=== PATIENT | female | born 1940 | race Caucasian/White ===

== ENCOUNTER → 2018-02-27 | Outpatient (CLI) | payer MEDICARE ==
--- NOTE | 2018-02-27 12:01 | XR ---
EXAMINATION TYPE: XR chest 2V DATE OF EXAM: 02/27/2018 COMPARISON: Chest x-ray 09/07/2012, CT chest 02/23/2013 HISTORY: Cough TECHNIQUE: Frontal and lateral views of the chest are obtained. FINDINGS: There is no focal air space opacity, pleural effusion, or pneumothorax seen. Nodularity in the right hilum is indeterminate. The cardiac silhouette size is within normal limits. Retrocardiac density with central lucency compatible with hiatal hernia. Patient is rotated. Postop change noted t o the left proximal humerus. The osseous structures are intact. IMPRESSION: Right middle lobe lung nodule not well seen from prior exam, consider chest CT.
== END | disposition home or self-care (01) ==
LOC: RADXRMAIN 10:34
PROVIDERS: ATTEND Family Medicine
DX: R05 Cough (principal)
CPT/HCPCS: 71046

== ENCOUNTER → 2018-03-06 | Outpatient (CLI) | payer MEDICARE ==
--- NOTE | 2018-03-06 09:09 | CT ---
EXAMINATION TYPE: CT chest w con DATE OF EXAM: 03/06/2018 COMPARISON: 02/23/2013 HISTORY: Solitary pulmonary nodule CT DLP: 405.2 mGycm Automated exposure control for dose reduction was used. CONTRAST: CT scan of the chest is performed with IV Contrast, patient injected with 100 mL of Isovue 300. FINDINGS: LUNGS: There is a 0.5 cm rounded density adjacent to a vessel in the anterior right middle lobe axial image 24. Finding is stable. Could be considered. Tiny peripheral nodules near the major fissure on the right at the level of the infrahilar region stable. No consolidation, pleural effusion or pneumothorax. MEDIASTINUM: There is a trace amount pericardial fluid. The heart is enlarged. Aortic root measures a pproximately 4 cm compatible with mild aneurysmal dilation stable from previous. Ectasia of the brach iocephalic artery noted appears stable. OTHER: Degenerative change of the spine noted with curvature. Hepatic granuloma noted. Postsurgical change left shoulder. Large hiatal hernia noted. Soft tissue calcification seen in the anterior right breast tissue IMPRESSION: 1. Stable 5 mm right middle lobe pulmonary nodule unchanged from 2013 and therefore likely benign. 2. Large hiatal hernia. 3. 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 #4 cardiomegaly and tiny pericardi al effusion.
== END | disposition home or self-care (01) ==
LOC: RADCTMAIN 07:26
PROVIDERS: ATTEND Family Medicine
DX: R91.1 Solitary pulmonary nodule (principal); I51.7 Cardiomegaly; I71.2 Thoracic aortic aneurysm, without rupture; I31.3 Pericardial effusion (noninflammatory); K44.9 Diaphragmatic hernia without obstruction or gangrene
CPT/HCPCS: 82565; 84520; 71260; 36415; Q9967

== ENCOUNTER → 2020-08-05 | Outpatient (CLI) | payer MEDICARE | END | disposition home or self-care (01) | LOC: LABWHC1 10:19 | PROVIDERS: ATTEND Emergency Medicine | DX: Z20.828 Contact with and (suspected) exposure to other viral communicable diseases (principal) | CPT/HCPCS: U0003; C9803 ==

== ENCOUNTER 2020-09-01 06:38 | Inpatient (IN) | payer MEDICARE ==
[2020-09-01] MEDS ORDERED: SODIUM CHLORIDE 0.9% 500 ML 500 ML IV STA (06:47)
[2020-09-01] MEDS ORDERED: MECLIZINE 12.5 MG TAB PO STA (06:47)
[2020-09-01] MEDS ORDERED: METOCLOPRAMIDE 5 MG/ML 2 ML VIAL IVP STA (06:49)
[2020-09-01 07:01] LABS: Basophils # (A) 0.1 k/uL (0-0.2); Basophils % (A) 1 %; Eosinophils # (A) 0.2 k/uL (0-0.7); Eosinophils % (A) 3 %; HCT 43.1 % (34.0-46.0); Lymphocytes # (A) 2.1 k/uL (1.0-4.8); Lymphocytes % (A) 31 %; MCHC 32.4 g/dL (31.0-37.0); MCV 98.6 fL (80.0-100.0); Mean Platelet Volume 6.8; Monocytes # (A) 0.4 k/uL (0-1.0); Monocytes % (A) 5 %; Neutrophils # (A) 3.8 k/uL (1.3-7.7); Neutrophils % (A) 57 %; Platelet Count 351 k/uL (150-450); RBC 4.37 m/uL (3.80-5.40); RDW 12.2 % (11.5-15.5); WBC 6.6 k/uL (3.8-10.6)
[2020-09-01 07:12] LABS: Albumin 3.9 g/dL (3.5-5.0); Calcium 9.4 mg/dL (8.4-10.2); Potassium 3.8 mmol/L (3.5-5.1); Total Bilirubin 0.6 mg/dL (0.2-1.3); Total Protein 6.4 g/dL (6.3-8.2)
--- NOTE | 2020-09-01 07:14 | ED ---
Dizziness HPI - General Chief Complaint: Dizziness Stated Complaint: Dizziness Time Seen by Provider: 09/01/20 06:46 Source: patient, EMS Mode of arrival: ambulatory Limitations: no limitations - History of Present Illness Initial Comments: Patient is a 80-year-old female, history hypertension, heart failure, presenting to the emergency department with complaints of dizziness that started when she woke up this morning. Patient states she went to stand up to use her bedside commode when she had extreme dizziness. She states she felt like she was sp inning as well as the room is spinning, so she called EMS. Patient states she lives alone. She states she has never experienced this before. She denies having any pain anywhere. No chest pain, no headache, no recent fevers. She states a few years ago she had a UTI that she had no symptoms and quickly became sick, she is hoping it's not bad again. She denies any urinary complaints. She denies any nausea, vomiting, diarrhea, abdominal pain. She denies any shortness of breath. She states yesterday when she went to bed she felt her normal self. She denies any recent falls. She denies been on blood thinner. She has no further complaints. Upon arrival to the ER, her vital signs are stable. - Related Data Home Medications Medication Instructions Recorded Confirmed Albuterol Nebulized [Ventolin 2.5 mg INHALATION RT-QID PRN 09/01/20 09/01/20 Nebulized] Albuterol Sulfate [Ventolin HFA] 1 - 2 puff INHALATION RT-Q6H PRN 09/01/20 09/01/20 Aspirin EC [Ecotrin Low Dose] 81 mg PO DAILY 09/01/20 09/01/20 Budesonide [Pulmicort] 0.5 mg INHALATION RT-BID PRN 09/01/20 09/01/20 Calcium Carbonate [Calcium] 600 mg PO DAILY 09/01/20 09/01/20 Cetirizine HCl [Zyrtec] 10 mg PO DAILY 09/01/20 09/01/20 Cholecalciferol [Vitamin D3 (25 1,000 unit PO DAILY 09/01/20 09/01/20 Mcg = 1000 Iu)] Cranberry Fruit Extract [Cranberry] 200 mg PO DAILY 09/01/20 09/01/20 Docusate [Colace] 200 mg PO DAILY 09/01/20 09/01/20 Furosemide [Lasix] 20 mg PO DAILY 09/01/20 09/01/20 Garlic 1 tab PO DAILY 09/01/20 09/01/20 Gemfibrozil [Lopid] 600 mg PO DAILY 09/01/20 09/01/20 Glucosamine Sulfate 500 mg PO DAILY 09/01/20 09/01/20 Krill Oil 500 mg PO DAILY 09/01/20 09/01/20 Lansoprazole 30 mg PO DAILY 09/01/20 09/01/20 Levothyroxine Sodium [Synthroid] 75 mcg PO DAILY 09/01/20 09/01/20 Meloxicam [Mobic] 7.5 mg PO BID 09/01/20 09/01/20 Montelukast [Singulair] 10 mg PO DAILY 09/01/20 09/01/20 Multivitamins, Thera [Multivitamin 1 tab PO DAILY 09/01/20 09/01/20 (formulary)] Potassium Chloride [Klor-Con 20] 20 meq PO DAILY 09/01/20 09/01/20 Vitamin E Acetate [Vitamin E] 200 unit PO DAILY 09/01/20 09/01/20 traMADol HCL [Ultram] 50 mg PO TID PRN 09/01/20 09/01/20 Allergies Allergy/AdvReac Type Severity Reaction Status Date / Time Penicillins Allergy Unknown Verified 09/01/20 07:50 Childhood Review of Systems ROS Statement: Those systems with pertinent positive or pertinent negative responses have been documented in the HPI. ROS Other: All systems not noted in ROS Statement are negative. Past Medical History Past Medical History: Heart Failure, Hypertension History of Any Multi-Drug Resistant Organisms: None Reported Past Surgical History: Cholecystectomy, Hysterectomy, Tonsillectomy Past Psychological History: No Psychological Hx Reported Smoking Status: Former smoker Past Alcohol Use History: None Reported Past Drug Use History: None Reported General Exam - General Exam Comments Initial Comments: GENERAL: Patient is well-developed and well-nourished. Patient is nontoxic and in no acute distress. HEAD: Atraumatic, normocephalic. EYES: Pupils equal round and reactive to light, extraocular movements intact, sclera anicteric, conjunctiva are normal. Eyelids were unremarkable. Horizontal nystagmus present ENT: TMs normal, nares patent, oropharynx clear without exudates. Moist mucous membranes. NECK: Normal range of motion, supple without lymphadenopathy or JVD. LUNGS: Unlabored respirations. Breath sounds clear to auscultation bilaterally and equal. No wheezes rales or rhonchi. HEART: Regular rate and rhythm without murmurs, rubs or gallops. ABDOMEN: Soft, nontender, normoactive bowel sounds. No guarding, no rebound. No masses appreciated. : Deferred MUSCULOSKELETAL: Normal extremities with adequate strength and normal range of motion, no pitting or edema. No clubbing or cyanosis. PSYCH: Normal mood, normal affect. SKIN: Warm, Dry, normal turgor, no rashes or lesions noted. Limitations: no limitations Neurological exam: Present: alert, oriented X3, CN II-XII intact Expanded Patient oriented to: Present: person, place, time Speech: Present: fluid speech Cranial nerves: EOM's Intact: Normal, Tongue Deviation: Normal, Nystagmus: Normal, Facial Sensation: Normal Cerebellar function: Finger to Nose: Normal, Heel to Abdalla: Normal Upper motor neuron: Pronator Drift: Normal Sensory exam: Upper Extremity Light Touch: Normal, Lower Extremity Light Touch: Normal Motor strength exam: RUE: 5, LUE: 5, RLE: 5, LLE: 5 Course Vital Signs 09/01/20 09/01/20 09/01/20 06:39 07:28 07:30 Temperature 97.5 F L Pulse Rate 58 L Pulse Rate [ 54 L 62 [employer] ] Respiratory 18 18 Rate Blood Pressure 176/73 Blood Pressure 154/90 [Left Arm Sitting] Blood Pressure [Left Arm Standing] Blood Pressure 146/75 [Left Arm Supine] O2 Sat by Pulse 100 Oximetry 09/01/20 09/01/20 07:33 10:03 Temperature 97.9 F Pulse Rate 63 Pulse Rate [ 70 [employer] ] Respiratory 18 Rate Blood Pressure 158/93 Blood Pressure [Left Arm Sitting] Blood Pressure 154/79 [Left Arm Standing] Blood Pressure [Left Arm Supine] O2 Sat by Pulse 97 Oximetry EKG Findings - EKG Comments: EKG Findings:: Sinus bradycardia with sinus arrhythmia, right BBB, no signs of acute ischemia. Ventricular rate 55, ME interval 172, QTC 464. Medical Decision Making - Medical Decision Making Patient is a 80-year-old female presenting via EMS with complaints of dizziness and room spinning that started this morning when she tried to stand up to use the restroom. She denies any recent falls or trauma. She denies any chest pain, shortness of breath, nausea, vomiting. Her exam reveals no acute findings, no neural deficits. She does have some mild horizontal nystagmus. She is complaining of double vision. Her vital signs are stable. Lab work shows normal white count, normal hemoglobin, troponin is elevated 0.078. Urine does reveal 70 WBCs, leukocyte esterase, bacteria. Urine culture is pending. Patient was given fluids, Reglan, meclizine, Valium. I did give her 1 g Rocephin for the UTI. Patient is having some mild improvement in her symptoms persisted is symptomatic when she stands. Her orthostatics were normal. Patient will be admitted for further workup. Dr. Luz did accept the patient. Consult to neurology and cardiology. Patient is agreement with this plan of care. Case discussed with Dr. Mendes. - Lab Data Result diagrams: 09/01/20 06:52 09/01/20 06:52 Lab Results 09/01/20 09/01/20 09/01/20 Range/Units 06:52 06:52 06:52 WBC 6.6 (3.8-10.6) k/uL RBC 4.37 (3.80-5.40) m/uL Hgb 14.0 (11.4-16.0) gm/dL Hct 43.1 (34.0-46.0) % MCV 98.6 (80.0-100.0) fL MCH 32.0 (25.0-35.0) pg MCHC 32.4 (31.0-37.0) g/dL RDW 12.2 (11.5-15.5) % Plt Count 351 (150-450) k/uL Neutrophils % 57 % Lymphocytes % 31 % Monocytes % 5 % Eosinophils % 3 % Basophils % 1 % Neutrophils # 3.8 (1.3-7.7) k/uL Lymphocytes # 2.1 (1.0-4.8) k/uL Monocytes # 0.4 (0-1.0) k/uL Eosinophils # 0.2 (0-0.7) k/uL Basophils # 0.1 (0-0.2) k/uL Sodium 140 (137-145) mmol/L Potassium 3.8 (3.5-5.1) mmol/L Chloride 109 H (98-107) mmol/L Carbon Dioxide 23 (22-30) mmol/L Anion Gap 8 mmol/L BUN 29 H (7-17) mg/dL Creatinine 0.85 (0.52-1.04) mg/dL Est GFR (CKD-EPI)AfAm 76 (>60 ml/min/1.73 sqM) Est GFR (CKD-EPI)NonAf 66 (>60 ml/min/1.73 sqM) Glucose 147 H (74-99) mg/dL Calcium 9.4 (8.4-10.2) mg/dL Total Bilirubin 0.6 (0.2-1.3) mg/dL AST 24 (14-36) U/L ALT 14 (4-34) U/L Alkaline Phosphatase 101 (38-126) U/L Troponin I (0.000-0.034) ng/mL Total Protein 6.4 (6.3-8.2) g/dL Albumin 3.9 (3.5-5.0) g/dL Urine Color Light Yellow Urine Appearance Clear (Clear) Urine pH 6.0 (5.0-8.0) Ur Specific Burt 1.018 (1.001-1.035) Urine Protein Negative (Negative) Urine Glucose (UA) Negative (Negative) Urine Ketones Negative (Negative) Urine Blood Negative (Negative) Urine Nitrite Negative (Negative) Urine Bilirubin Negative (Negative) Urine Urobilinogen <2.0 (<2.0) mg/dL Ur Leukocyte Esterase Large H (Negative) Urine WBC 70 H (0-5) /hpf Ur Squamous Epith Cells 1 (0-4) /hpf Urine Bacteria Rare H (None) /hpf 09/01/20 Range/Units 06:52 WBC (3.8-10.6) k/uL RBC (3.80-5.40) m/uL Hgb (11.4-16.0) gm/dL Hct (34.0-46.0) % MCV (80.0-100.0) fL MCH (25.0-35.0) pg MCHC (31.0-37.0) g/dL RDW (11.5-15.5) % Plt Count (150-450) k/uL Neutrophils % % Lymphocytes % % Monocytes % % Eosinophils % % Basophils % % Neutrophils # (1.3-7.7) k/uL Lymphocytes # (1.0-4.8) k/uL Monocytes # (0-1.0) k/uL Eosinophils # (0-0.7) k/uL Basophils # (0-0.2) k/uL Sodium (137-145) mmol/L Potassium (3.5-5.1) mmol/L Chloride (98-107) mmol/L Carbon Dioxide (22-30) mmol/L Anion Gap mmol/L BUN (7-17) mg/dL Creatinine (0.52-1.04) mg/dL Est GFR (CKD-EPI)AfAm (>60 ml/min/1.73 sqM) Est GFR (CKD-EPI)NonAf (>60 ml/min/1.73 sqM) Glucose (74-99) mg/dL Calcium (8.4-10.2) mg/dL Total Bilirubin (0.2-1.3) mg/dL AST (14-36) U/L ALT (4-34) U/L Alkaline Phosphatase (38-126) U/L Troponin I 0.078 H* (0.000-0.034) ng/mL Total Protein (6.3-8.2) g/dL Albumin (3.5-5.0) g/dL Urine Color Urine Appearance (Clear) Urine pH (5.0-8.0) Ur Specific Burt (1.001-1.035) Urine Protein (Negative) Urine Glucose (UA) (Negative) Urine Ketones (Negative) Urine Blood (Negative) Urine Nitrite (Negative) Urine Bilirubin (Negative) Urine Urobilinogen (<2.0) mg/dL Ur Leukocyte Esterase (Negative) Urine WBC (0-5) /hpf Ur Squamous Epith Cells (0-4) /hpf Urine Bacteria (None) /hpf Disposition Clinical Impression: Elevated troponin, Dizziness, UTI (urinary tract infection) Disposition: ADMITTED IP TO THIS [facility] Condition: Stable Decision Date: 09/01/20 Decision Time: 09:32
--- NOTE | 2020-09-01 07:30 | CT ---
EXAMINATION TYPE: CT brain wo con DATE OF EXAM: 09/01/2020 COMPARISON: 05/01/2012 HISTORY: 80-year-old female Dizziness TECHNIQUE: Examination was done in axial plane without intravenous contrast. Coronal and sagittal r econstructions performed. CT DLP: 1099.4 mGycm Automated exposure control for dose reduction was used. FINDINGS: There is no evidence of acute intracranial hemorrhage, acute ischemic changes, mass, mass-effect, or extra-axial fluid collection. There is no effacement of cerebral sulci or basal subarachnoid cister ns. There is no hydrocephalus. There is no midline shift. Nair-white matter distinction is preserv ed. Mild cerebral cortical atrophy and moderate patchy white matter hypodensities in both cerebral hemisp heres. Large air-fluid level within the left maxillary sinus. Slight leftward nasal septal deviation. Mastoi d air cells well pneumatized. Orbits and globes are intact. IMPRESSION: 1. Mild atrophy and moderate patchy changes of chronic small vessel ischemic disease. No acute intrac ranial abnormality seen. 2. Correlate for acute left maxillary sinusitis.
[2020-09-01] MEDS ORDERED: diazePAM 5 MG TAB PO STA (07:46)
--- NOTE | 2020-09-01 08:03 | XR ---
EXAMINATION TYPE: XR chest 2V DATE OF EXAM: 09/01/2020 COMPARISON: 02/27/2018 HISTORY: 80-year-old female dizziness TECHNIQUE: AP and lateral views FINDINGS: Heart is moderately enlarged. There is rounded retrocardiac density central patchy density at the rig ht midlung. No pleural effusion. Partially visualized plate and screw fixation proximal left humerus. IMPRESSION: 1. Cardiomegaly appears increased from 2018. 2. Subtle patchy atelectasis versus early infiltrate at the right midlung. 3. Suspect underlying moderate-sized hiatal hernia.
[2020-09-01 08:18] LABS: Appearance,Urine Clear (Clear); Bacteria,Urine Rare /hpf; Bilirubin,Urine Negative (Negative); Blood,Urine Negative (Negative); Color,Urine Light Yellow; Glucose,Urine (UA) Negative (Negative); Ketones,Urine Negative (Negative); Leukocyte Esterase,Urine Large (Negative); Nitrite,Urine Negative (Negative); Protein,Urine Negative (Negative); Specific Gravity,Urine 1.018 (1.001-1.035); Squamous Epithelial Cell,Urine 1 /hpf (0-4); Urobilinogen,Urine <2.0 mg/dL (<2.0); WBC,Urine 70 /hpf (0-5)
[2020-09-01] MEDS ORDERED: cefTRIAXone IN SWFI 1,000 MG/10 ML SYRINGE IVP STA (08:25)
[2020-09-01] MEDS ORDERED: traMADol 50 MG TAB PO PRN (09:15)
[2020-09-01] MEDS ORDERED: BUDESONIDE 0.5 MG/2 ML NEBU INHALATION PRN (09:15)
[2020-09-01] MEDS ORDERED: NALOXONE 0.4 MG/ML 1 ML VIAL IV PRN (09:30)
--- NOTE | 2020-09-01 11:00 | ECHOF ---
Referral Reason:Elevated troponin, dizzy MEASUREMENTS -------- HEIGHT: 167.6 cm WEIGHT: 81.6 kg BP: 154/79 RVIDd: 3.4 cm (< 3.3) IVSd: 1.3 cm (0.6 - 1.1) LVIDd: 5.1 cm (3.9 - 5.3) LVPWd: 1.2 cm (0.6 - 1.1) IVSs: 2.0 cm LVIDs: 3.5 cm LVPWs: 1.7 cm LA Diam: 3.9 cm (2.7 - 3.8) LAESV Index (A-L): 29.13 ml/m Ao Diam: 3.8 cm (2.0 - 3.7) AV Cusp: 2.4 cm (1.5 - 2.6) MV EXCURSION: 19.089 mm (> 18.000) MV EF SLOPE: 47 mm/s (70 - 150) MV E Mendel: 0.72 m/s MV DecT: 229 ms MV A Mendel: 1.22 m/s MV E/A Ratio: 0.59 AR PHT: 678 ms FINDINGS -------- Sinus rhythm. This was a technically adequate study. The left ventricular size is normal. There is mild concentric left ventricular hypertrophy. Overa ll left ventricular systolic function is normal with, an EF between 60 - 65 %. The right ventricle is mildly enlarged. LA is midly dilated 29-33ml/m2. The right atrium is normal in size. Interatrial and interventricular septum intact. The aortic valve is trileaflet and appears structurally normal. There is mild aortic regurgitation. Mild mitral annular calcification present. Mild mitral regurgitation is present. Trace tricuspid regurgitation present. There is no pulmonic regurgitation present. The aortic root is dilated measuring 3.8cm. Normal inferior vena cava with normal inspiratory collapse consistent with estimated right atrial pre ssure of 5 mmHg. The inferior vena cava is mildly dilated. There is a small pericardial effusion located near the left ventricle. CONCLUSIONS -------- 1. The left ventricular size is normal. 2. There is mild concentric left ventricular hypertrophy. 3. Overall left ventricular systolic function is normal with, an EF between 60 - 65 %. 4. The right ventricle is mildly enlarged. 5. LA is midly dilated 29-33ml/m2. 6. The aortic valve is trileaflet and appears structurally normal. 7. There is mild aortic regurgitation. 8. Mild mitral annular calcification present. 9. Mild mitral regurgitation is present. 10. Trace tricuspid regurgitation present. 11. The aortic root is dilated measuring 3.8cm. 12. The inferior vena cava is mildly dilated. 13. There is a small pericardial effusion located near the left ventricle. FILTROSE CRUSHER: Reta Ramesh RDCS
--- NOTE | 2020-09-01 11:52 | US ---
EXAMINATION TYPE: US carotid duplex BILAT DATE OF EXAM: 09/01/2020 COMPARISON: NONE CLINICAL HISTORY: Elevated trop, dizzy. EXAM MEASUREMENTS: RIGHT: Peak Systolic Velocity (PSV) cm/sec ----- Right CCA: 53.5 ----- Right ICA: 61.9 ----- Right ECA: 63.2 ICA/CCA ratio: 1.2 RIGHT: End Diastole cm/sec ----- Right CCA: 10.6 ----- Right ICA: 17.0 ----- Right ECA: 9.0 LEFT: Peak Systolic Velocity (PSV) cm/sec ----- Left CCA: 50.2 ----- Left ICA: 61.3 ----- Left ECA: 55.1 ICA/CCA ratio: 1.2 LEFT: End Diastole cm/sec ----- Left CCA: 8.2 ----- Left ICA: 23.8 ----- Left ECA: 5.6 VERTEBRALS (direction of flow): Right Vertebral: antegrade Left Vertebral: antegrade Mild atherosclerotic changes with no significant velocity increases seen bilateral. IMPRESSION: No hemodynamically significant stenosis bilaterally. Criteria for Assigning % of Stenosis / Diameter reduction (Estimation based on the indirect measurements of the internal carotid artery velocities (ICA PSV). 1. Normal (no stenosis)=ICA PSV < 125 cm/s: ratio < 2.0: ICA EDV<40 cm/s. 2. Less than 50% stenosis=ICA PSV < 125 cm/s: ratio < 2.0: ICA EDV<40 cm/s. 3. 50 to 69% stenosis=ICA PSV of 125 to 230 cm/s: ration 2.0 ? 4.0: ICA EDV 40-100 cm/s. 4. Greater than 70% stenosis to near occlusion= ICA PSV > 230 cm/s: ratio > 4.0: ICA EDV > 100 cm/s. 5. Near occlusion= ICA PSV velocities may be low or undetectable: variable ratio and ICA EDV. 6. Total occlusion=unable to detect flow.
[2020-09-01] MEDS: ASPIRIN 81 MG PO SCH (11:57)
[2020-09-01] MEDS: DOCUSATE 100 MG CAP PO SCH (11:58)
[2020-09-01] MEDS: PANTOPRAZOLE 40 MG TABLET PO SCH (11:58)
[2020-09-01] MEDS: LEVOTHYROXINE 75 MCG TAB PO SCH (11:58)
[2020-09-01] MEDS: POTASSIUM CHLORIDE ER 20 MEQ TAB.ER PO SCH (11:58)
[2020-09-01] MEDS: FUROSEMIDE 20 MG TAB PO SCH (11:58)
[2020-09-01] MEDS: LORATADINE 10 MG TAB PO SCH (11:58)
[2020-09-01] MEDS: ONDANSETRON 4 MG/2 ML VIAL IVP PRN ×2 (14:55→20:20)
[2020-09-01] MEDS: SODIUM CHLORIDE 0.9% 1,000 ML IV SCH (15:06)
[2020-09-01] MEDS ORDERED: MECLIZINE 25 MG TAB PO PRN (15:07)
--- NOTE | 2020-09-01 15:11 | P.HPIM ---
History of Present Illness H&P Date: 09/01/20 HISTORY OF PRESENT ILLNESS This is a 80-year-old female patient of Dr. Acharya and Dr. Ochoa with past medical history of frequent urinary tract infections, mild intermittent asthma, COPD, hyperlipidemia, hypothyroidism, gastroesophageal reflux disease, history of UTI and sepsis in 2012 requiring ventilator support and hemodialysis, osteoporosis. Patient complains of dizziness like the room was spinning. She denies having any chest pain, no shortness of breath, no nausea, no fever or chills. No diarrhea. No abdominal pain. Patient came into [facility] emergency center for evaluation. She is found to be afebrile, heart rate 58, blood pressure 176/73, pulse ox 100% on room air. With no acute ST changes. CBC unremarkable. Electrolytes and renal function unremarkable. Blood sugar 147. Liver function tests were normal. This urinalysis revealed leukoesterase large, WBC 70, bacteria rare. Troponin 0.078. Chest x-ray reveals cardiomegaly appears increased from 2018. Subtle patchy atelectasis versus early infiltrate at the right mid lung. Suspect underlying moderate size hiatal hernia CAT scan of the brain showed mild atrophy and moderate patchy changes of chronic small vessel ischemic change. No acute intracranial abnormality. Correlate for acute left maxillary sinusitis. 2 patient admitted to the cardiac stepdown unit. Echocardiogram reveals EF of 60-65% with mild concentric left hypertrophy, mild mitral regurgitation, trace tricuspid regurgitation, aortic root dilated measuring 3.8 cm. Small pericar dial effusion. Carotid ultrasound reveals no hemodynamically significant stenosis bilaterally. Consult with cardiology and neurology. REVIEW OF SYSTEMS Constitutional: No fever, no chills, no night sweats. No weight change. No weakness, fatigue or lethargy. No daytime sleepiness. EENT: No headache. No blurred vision or double vision, no loss of vision. No loss of Hearing, no ringing in the ears, no dizziness. No nasal drainage or congestion. No epistaxis. No sore throat. Lungs: No shortness of breath, cough, no sputum production. No wheezing. Cardiovascular: No chest pain, no lower extremity edema. No palpitations. No paroxysmal nocturnal dyspnea. No orthopnea. No lightheadedness or dizziness. No syncopal episodes. Abdominal: No abdominal pain. No nausea, vomiting. No diarrhea. No constipation. No bloody or tarry stools.. No loss of appetite. Genitourinary: No dysuria, increased frequency, urgency. No urinary retention. Musculoskeletal: No myalgias. No muscle weakness, no gait dysfunction, no frequent falls. No back pain. No neck pain. Integumentary: No wounds, no lesions. No rash or pruritus. No unusual bruising. No change in hair or nails. Neurologic: No aphasia. No facial droop. No change in mentation. No head injury. No headache. No paralysis. No paresthesia. Psychiatric: No depression. No anxiety. No mood swings. Endocrine: No abnormal blood sugars. No weight change. No excessive sweating or thirst. No cold intolerance. SOCIAL HISTORY Patient smoked a half a pack per day for 20-30 years and quit in November 1990. No alcohol use, marijuana or street drug use. She is a and lives alone. FAMILY HISTORY Father in his 80s from some type of blood disease. Mother in her 80s as well from old age. Patient has one sister living and one brother living with no major medical problems. Patient is for children with no major medical problems.. PHYSICAL EXAMINATION Gen: This is a 80-year-old female. Patient is resting in the ER stretcher and appears to be comfortable and in no acute distress. HEENT: Head is atraumatic, normocephalic. Pupils equal, round. Sclerae is anicteric. Slight nystagmus. Mucous members of the mouth are moist. NECK: Supple. No JVD. No lymphadenopathy. No thyromegaly. LUNGS: Clear to auscultation. No wheezes or rhonchi. No intercostal retractions. HEART: Regular rate and rhythm. No murmur. ABDOMEN: Soft. Bowel sounds are present. No masses. No tenderness. EXTREMITIES: No pedal edema. No calf tenderness. NEUROLOGICAL: Patient is awake, alert and oriented x3. Cranial nerves 2 through 12 are grossly intact. ASSESSMENT AND PLAN 1. Dizziness possibly related to benign positional vertigo, rule out arrhythmia, TIA. Consult with cardiology and neurology. Meclizine 25 mg 3 times daily as needed. 2. Acute urinary tract infection. Await urine culture, Rocephin 1 g daily. 3. Mild intermittent asthma, COPD without exacerbation. Continue Singulair 10 mg daily, albuterol nebulizer 4 times daily as needed and Pulmicort 0.5 mg twice daily 4. Hyperlipidemia. Continue fenofibrate. 5. Hypothyroidism. Continue levothyroxine 75 g daily 6. Gastroesophageal reflux disease and GI prophylaxis. Protonix daily. 7. DVT prophylaxis. Heparin subcu. Patient placed as observation status. Discharge plan: Discharge home tomorrow. Impression and plan of care have been directed as dictated by the signing physician. Grace Brush nurse practitioner acting as scribe for signing physician. Past Medical History Past Medical History: Heart Failure, Hypertension History of Any Multi-Drug Resistant Organisms: None Reported Past Surgical History: Cholecystectomy, Hysterectomy, Tonsillectomy Past Psychological History: No Psychological Hx Reported Smoking Status: Former smoker Past Alcohol Use History: None Reported Past Drug Use History: None Reported Medications and Allergies Home Medications Medication Instructions Recorded Confirmed Type Albuterol Nebulized [Ventolin 2.5 mg INHALATION RT-QID PRN 09/01/20 09/01/20 History Nebulized] Albuterol Sulfate [Ventolin HFA] 1 - 2 puff INHALATION RT-Q6H PRN 09/01/20 09/01/20 History Aspirin EC [Ecotrin Low Dose] 81 mg PO DAILY 09/01/20 09/01/20 History Budesonide [Pulmicort] 0.5 mg INHALATION RT-BID PRN 09/01/20 09/01/20 History Calcium Carbonate [Calcium] 600 mg PO DAILY 09/01/20 09/01/20 History Cetirizine HCl [Zyrtec] 10 mg PO DAILY 09/01/20 09/01/20 History Cholecalciferol [Vitamin D3 (25 1,000 unit PO DAILY 09/01/20 09/01/20 History Mcg = 1000 Iu)] Cranberry Fruit Extract [Cranberry] 200 mg PO DAILY 09/01/20 09/01/20 History Docusate [Colace] 200 mg PO DAILY 09/01/20 09/01/20 History Furosemide [Lasix] 20 mg PO DAILY 09/01/20 09/01/20 History Garlic 1 tab PO DAILY 09/01/20 09/01/20 History Gemfibrozil [Lopid] 600 mg PO DAILY 09/01/20 09/01/20 History Glucosamine Sulfate 500 mg PO DAILY 09/01/20 09/01/20 History Krill Oil 500 mg PO DAILY 09/01/20 09/01/20 History Lansoprazole 30 mg PO DAILY 09/01/20 09/01/20 History Levothyroxine Sodium [Synthroid] 75 mcg PO DAILY 09/01/20 09/01/20 History Meloxicam [Mobic] 7.5 mg PO BID 09/01/20 09/01/20 History Montelukast [Singulair] 10 mg PO DAILY 09/01/20 09/01/20 History Multivitamins, Thera [Multivitamin 1 tab PO DAILY 09/01/20 09/01/20 History (formulary)] Potassium Chloride [Klor-Con 20] 20 meq PO DAILY 09/01/20 09/01/20 History Vitamin E Acetate [Vitamin E] 200 unit PO DAILY 09/01/20 09/01/20 History traMADol HCL [Ultram] 50 mg PO TID PRN 09/01/20 09/01/20 History Allergies Allergy/AdvReac Type Severity Reaction Status Date / Time Penicillins Allergy Unknown Verified 09/01/20 07:50 Childhood Physical Exam Vitals: Vital Signs Temp Pulse Pulse Resp BP BP BP 09/01/20 07:33 70 154/79 09/01/20 07:30 62 154/90 09/01/20 07:28 54 L 18 09/01/20 06:39 97.5 F L 58 L 18 176/73 BP Pulse Ox 09/01/20 07:33 09/01/20 07:30 09/01/20 07:28 146/75 09/01/20 06:39 100 Intake and Output 08/31/20 09/01/20 09/01/20 22:59 06:59 14:59 Other: Weight 81.647 kg Results CBC & Chem 7: 09/01/20 06:52 09/01/20 06:52 Labs: Abnormal Lab Results - Last 24 Hours (Table) 09/01/20 09/01/20 09/01/20 Range/Units 06:52 06:52 06:52 Chloride 109 H (98-107) mmol/L BUN 29 H (7-17) mg/dL Glucose 147 H (74-99) mg/dL Troponin I 0.078 H* (0.000-0.034) ng/mL Ur Leukocyte Esterase Large H (Negative) Urine WBC 70 H (0-5) /hpf Urine Bacteria Rare H (None) /hpf
[2020-09-01] MEDS: BUDESONIDE 0.5 MG/2 ML NEBU INHALATION SCH (19:10)
[2020-09-01] MEDS: HEPARIN SODIUM,PORCINE 5,000 UNIT/ML 1 ML VIAL SQ SCH (20:20)
[2020-09-01] MEDS: MELOXICAM 7.5 MG TAB PO SCH (20:21)
--- NOTE | 2020-09-01 20:46 | P.CNNES ---
History of Present Illness Consult date: 09/01/20 Requesting physician: Grace Brush Reason for Consult: dizziness History of Present Illness: This is a 80-year-old right-handed woman with medical history of hyperlipidemia, hypothyroidism, frequent urinary tract infection, osteoporosis that presented to the emergency department on 09/01/2020 for dizziness. She said that she woke up around 5:00 in the morning today and she noticed that she's having dizziness as if the room is spinning. She said that that she was trying to get out of bed and then she just fell backward in bed as a result. She is also having nausea and vomiting. She denies any ringing in the ears or any new hearing loss. She does have chronic mild hearing loss bilaterally. Also has diplopia on of the both eyes and it's mostly [id number] She denies any head trauma recently. Denies any fever. Denies being on any new medication. She denies any focal weakness, numbness, slurring of the speech. Denies difficulty swallowing. CT of the head was reported as a mild atrophy and moderate patchy changes of chronic small vessel ischemic disease. No acute intracranial abnormality seen. Correlate for acute left maxillary sinusitis. I personally E the CT of the head and there is no acute ischemia, hemorrhage. There is no pertinent encephalomalacia that was significant. EKG was reported as sinus bradycardia with sinus arrhythmia. Ventricular rate of 55. Right bundle branch block. Lateral infarct, age undetermined. Abnormal EKG. 2-D echo was reported as a mild concentric left ventricular hypertrophy. Ejection fraction of 6065%. Left atrium is mildly dilated. Carotid duplex was reported as no hemodynaically significant stenosis bilaterally Orthostatic vitals: Supine blood pressure of 146/75 with a heart rate 54; sitting blood pressure of 154/90 with a heart rate of 62 and standing is a blood pressure of 154/79 with a heart rate of 70. Review of Systems Review of system: The 12 point system was reviewed and apparent positive and ne gative per HPI. Past Medical History Past Medical History: Heart Failure, Hypertension Additional Past Medical History / Comment(s): 2012 pt had UTI/sepsis/septic shock/pyelonephritis/acute renal failure with hemodialysis/acute respiratory failure with vent/Afib RVR/edema/anasarca/metabolic encephalopathy. Other hx: arthritis in multiple joints, chronic pain back and knees, osteoporosis, bronchitis, sinus problems, hypothyroid, bilateral glaucoma, UTI-one since 2011. History of Any Multi-Drug Resistant Organisms: None Reported Past Surgical History: Cholecystectomy, Hysterectomy, Tonsillectomy Additional Past Surgical History / Comment(s): R breast benign biopsy, bladder suspension, L shoulder injury/has hardware, colonoscopies. Past Anesthesia/Blood Transfusion Reactions: No Reported Reaction, Motion Sick ness Past Psychological History: No Psychological Hx Reported Smoking Status: Former smoker Past Alcohol Use History: None Reported Past Drug Use History: None Reported Medications and Allergies Home Medications Medication Instructions Recorded Confirmed Type Albuterol Nebulized [Ventolin 2.5 mg INHALATION RT-QID PRN 09/01/20 09/01/20 History Nebulized] Albuterol Sulfate [Ventolin HFA] 1 - 2 puff INHALATION RT-Q6H PRN 09/01/20 09/01/20 History Aspirin EC [Ecotrin Low Dose] 81 mg PO DAILY 09/01/20 09/01/20 History Budesonide [Pulmicort] 0.5 mg INHALATION RT-BID PRN 09/01/20 09/01/20 History Calcium Carbonate [Calcium] 600 mg PO DAILY 09/01/20 09/01/20 History Cetirizine HCl [Zyrtec] 10 mg PO DAILY 09/01/20 09/01/20 History Cholecalciferol [Vitamin D3 (25 1,000 unit PO DAILY 09/01/20 09/01/20 History Mcg = 1000 Iu)] Cranberry Fruit Extract [Cranberry] 200 mg PO DAILY 09/01/20 09/01/20 History Docusate [Colace] 200 mg PO DAILY 09/01/20 09/01/20 History Furosemide [Lasix] 20 mg PO DAILY 09/01/20 09/01/20 History Garlic 1 tab PO DAILY 09/01/20 09/01/20 History Gemfibrozil [Lopid] 600 mg PO DAILY 09/01/20 09/01/20 History Glucosamine Sulfate 500 mg PO DAILY 09/01/20 09/01/20 History Krill Oil 500 mg PO DAILY 09/01/20 09/01/20 History Lansoprazole 30 mg PO DAILY 09/01/20 09/01/20 History Levothyroxine Sodium [Synthroid] 75 mcg PO DAILY 09/01/20 09/01/20 History Meloxicam [Mobic] 7.5 mg PO BID 09/01/20 09/01/20 History Montelukast [Singulair] 10 mg PO DAILY 09/01/20 09/01/20 History Multivitamins, Thera [Multivitamin 1 tab PO DAILY 09/01/20 09/01/20 History (formulary)] Potassium Chloride [Klor-Con 20] 20 meq PO DAILY 09/01/20 09/01/20 History Vitamin E Acetate [Vitamin E] 200 unit PO DAILY 09/01/20 09/01/20 History traMADol HCL [Ultram] 50 mg PO TID PRN 09/01/20 09/01/20 History Allergies Allergy/AdvReac Type Severity Reaction Status Date / Time Penicillins Allergy Unknown Verified 09/01/20 07:50 Childhood Physical Examination - Vital Signs Vital Signs: Vital Signs Temp Pulse Pulse Resp BP BP BP 09/01/20 19:20 80 16 09/01/20 19:10 81 16 09/01/20 14:58 98.1 F 81 16 09/01/20 11:44 97.6 F 66 20 165/74 09/01/20 10:03 97.9 F 63 18 158/93 09/01/20 07:33 70 154/79 09/01/20 07:30 62 154/90 09/01/20 07:28 54 L 18 09/01/20 06:39 97.5 F L 58 L 18 176/73 BP Pulse Ox 09/01/20 19:20 09/01/20 19:10 09/01/20 14:58 138/80 97 09/01/20 11:44 96 09/01/20 10:03 97 09/01/20 07:33 09/01/20 07:30 09/01/20 07:28 146/75 09/01/20 06:39 100 Intake and Output 09/01/20 09/01/20 09/01/20 06:59 14:59 22:59 Output Total 500 500 Balance -500 -500 Output: Urine 500 500 Other: # Voids 1 Weight 81.647 kg 81.647 kg GENERAL: The patient is lying in bed and is not in acute distress. CHEST: The heart rate is regular rate rhythm. No murmurs to auscultation. LUNG: Clear to auscultation bilaterally no wheezing noted throughout. Not labored breathing. ABDOMEN/GI: Bowel sounds present in all 4 quadrants. No tenderness to palpation throughout. NEUROLOGICAL: Higher mental function: The patient is awake, alert, oriented to self, place and time. Patient is following commands. No aphasia and no neglect. Cranial nerves: The pupils are round, equal and reactive to light and accommodation. Visual johansen are full to confrontation throughout. Extraocular movement is intact and positivie nystagmus noted in all directions, nystagmus was rotatory. Had diplopia [id number] upon looking to lateral gaze and resolved when covering either eye. Facial sensation is normal to touch throughout. The facial strength is normal throughout. Hearing is mild hearing loss bilaterally to hand rub. Tongue is midline and moved [id number] without any difficulty. No dysarthria is noted. Shoulder shrug is normal bilaterally. Motor: Gait is defered since she was feeling nauseous. The strength is 5 over 5 throughout. Normal tone and bulk. Cerebellum: Normal finger to nose bilaterally. Sensation: Sensation is normal to touch throughout. Reflexes (right/left): 2+ throughout. Plantars are downgoing bilaterally. Results Patient's troponin are elevated 0.078, 0.071. Urine Analysis shows leukocyte esterase was large urine white blood cell was 70. - Laboratory Findings CBC and BMP: 09/01/20 06:52 09/01/20 06:52 Abnormal Lab Findings: Abnormal Labs 09/01/20 09/01/20 09/01/20 06:52 06:52 06:52 Chloride 109 H BUN 29 H Glucose 147 H Troponin I 0.078 H* Ur Leukocyte Esterase Large H Urine WBC 70 H Urine Bacteria Rare H 09/01/20 09/01/20 10:31 12:35 Chloride BUN Glucose Troponin I 0.071 H* 0.065 H* Ur Leukocyte Esterase Urine WBC Urine Bacteria Assessment and Plan Assessment: Dizziness and diplopia: Seems more benign positional vertigo. Cannot rule out stroke. Elevated troponin Ureter tract infection Plan: Orhtostatic vitals are negative. Patient was on meclizine 12.5 mg by mouth when necessary. I notified the nurse that to change it to standing dose. Continue Zofran when necessary as needed. I ordered MRI of the brain to rule out stroke. If positive then I'll get the rest of the remaining stroke workup. For elevated troponin, recommend cardiology consultation. We'll defer the management of urinary tract infection to the primary team. Thank you for the consultation. Johnson Brito M.D. Neuro-hospitalist Time with Patient: Greater than 30
[2020-09-01] MEDS ORDERED: MECLIZINE 12.5 MG TAB PO SCH (21:00)
[2020-09-02] MEDS: SODIUM CHLORIDE 0.9% 1,000 ML IV SCH ×2 (06:08→23:03)
[2020-09-02] MEDS: LEVOTHYROXINE 75 MCG TAB PO SCH (06:11)
[2020-09-02] MEDS: PANTOPRAZOLE 40 MG TABLET PO SCH (06:11)
[2020-09-02] MEDS: BUDESONIDE 0.5 MG/2 ML NEBU INHALATION SCH ×2 (07:42→20:15)
[2020-09-02] MEDS: ALBUTEROL NEBULIZED 2.5 MG/3 ML INHALATION PRN ×4 (07:42→20:15)
[2020-09-02] MEDS ORDERED: DOBUTamine DRIP for NUC MED 500 MG in DEXTROSE/WATER 1 250ML.BAG IV ONE (09:04)
[2020-09-02] MEDS ORDERED: METOPROLOL TARTRATE 25 MG TAB PO SCH (09:15)
--- NOTE | 2020-09-02 11:18 | P.CRDCN ---
History of Present Illness History of present illness: HISTORY OF PRESENTING ILLNESS This is a pleasant 80-year-old female past medical history significant for paroxysmal atrial fibrillation, hypertension and dyslipidemia. She follows in the office with Dr. Ochoa. We have been asked to see in consultation for elevated troponin. She presented to the hospital with symptoms of dizziness, nausea and weakness. She states she was getting up to the bathroom and felt dizzy like the room was spinning. The dizziness felt worse when she turned her head or tried to move. Upon arriving to the hospital she continued to feel dizzy and also vomited 2 times. She denies chest pain, shortness of breath, LOC or palpitations. echocardiogram obtained reveals preserved LV systolic function ejection fraction 60-65%, mild MR noted. No cruz-arrhythmias noted. DIAGNOSTICS EKG reveals sinus bradycardia heart rate of 55, right bundle branch block. Chest xray atelectasis versus early infiltrate at the right midlung, moderate- sized hiatal hernia. brain CT reveals mild atrophy and moderate patchy changes of chronic small vessel ischemic disease with no acute intracranial abnormality noted, acute left maxillary sinusitis. bilateral carotid Doppler reveals no hemodynamically significant stenosis bilaterally. Laboratory reviewed, CBC unremarkable, sodium 140, potassium 3.8, creatinine 0.85, troponin 0.078, 0.071 and 0.065. Current cardiac medications include aspirin 81 mg daily and Lasix 20 mg daily. REVIEW OF SYSTEMS At the time of my exam: CONSTITUTIONAL: Denies fever or chills. CARDIOVASCULAR: Denies chest pain, shortness of breath, orthopnea, PND or palpitations. RESPIRATORY: Denies cough. GASTROINTESTINAL: Denies abdominal pain, diarrhea, constipation, nausea or vomiting. MUSCULOSKELETAL: Denies myalgias. NEUROLOGIC: Denies numbness, tingling or weakness. ENDOCRINE: Denies fatigue, weight change, polydipsia or polyurina. GENITOURINARY: Denies burning, hematuria or urgency with micturation. HEMATOLOGIC: Denies history of anemia or bleeding. PHYSICAL EXAMINATION Blood pressure 143/72 heart rate 72 afebrile and maintaining oxygen saturation on room air. CONSTITUTIONAL: No apparent distress. HEENT: Head is normocephalic. Pupils are equal, round. Sclerae anicteric. Mucous membranes of the mouth are moist. No JVD. No carotid bruit. CHEST EXAMINATION: Lungs are clear to auscultation. No chest wall tenderness is noted on palpation or with deep breathing. HEART EXAMINATION: Regular rate and rhythm. S1, S2 heard. Systolic ejection murmur at the left sternal border, no gallops or rub. ABDOMEN: Soft, nontender. Positive bowel sounds. EXTREMITIES: 2+ peripheral pulses, no lower extremity edema and no calf tende rness. NEUROLOGIC EXAMINATION: Patient is awake, alert and oriented x3. ASSESSMENT Dizziness suggestive of vertigo Elevated troponin, flat of unclear significance. No symptoms of ACS. Paroxysmal atrial fibrillation on long-term anticoagulation Hypertension Dyslipidemia PLAN No wall motion abnormalities noted on echocardiogram. No symptoms of ACS. Recommend proceeding with dobutamine stress echocardiogram to assess for stress- induced cardiac ischemia. If abnormalities noted on stress test we will consider coronary angiography. Otherwise can be discharged from a cardiac perspective. Thank you kindly for this consultation. Nurse Practitioner note has been reviewed, I agree with a documented findings and plan of care. Patient was seen and examined. Past Medical History Past Medical History: Heart Failure, Hypertension Additional Past Medical History / Comment(s): 2012 pt had UTI/sepsis/septic shock/pyelonephritis/acute renal failure with hemodialysis/acute respiratory failure with vent/Afib RVR/edema/anasarca/metabolic encephalopathy. Other hx: arthritis in multiple joints, chronic pain back and knees, osteoporosis, bronchitis, sinus problems, hypothyroid, bilateral glaucoma, UTI-one since 2011. History of Any Multi-Drug Resistant Organisms: None Reported Past Surgical History: Cholecystectomy, Hysterectomy, Tonsillectomy Additional Past Surgical History / Comment(s): R breast benign biopsy, bladder suspension, L shoulder injury/has hardware, colonoscopies. Past Anesthesia/Blood Transfusion Reactions: No Reported Reaction, Motion Sickness Past Psychological History: No Psychological Hx Reported Smoking Status: Former smoker Past Alcohol Use History: None Reported Past Drug Use History: None Reported Medications and Allergies Home Medications Medication Instructions Recorded Confirmed Type Albuterol Nebulized [Ventolin 2.5 mg INHALATION RT-QID PRN 09/01/20 09/01/20 History Nebulized] Albuterol Sulfate [Ventolin HFA] 1 - 2 puff INHALATION RT-Q6H PRN 09/01/20 09/01/20 History Aspirin EC [Ecotrin Low Dose] 81 mg PO DAILY 09/01/20 09/01/20 History Budesonide [Pulmicort] 0.5 mg INHALATION RT-BID PRN 09/01/20 09/01/20 History Calcium Carbonate [Calcium] 600 mg PO DAILY 09/01/20 09/01/20 History Cetirizine HCl [Zyrtec] 10 mg PO DAILY 09/01/20 09/01/20 History Cholecalciferol [Vitamin D3 (25 1,000 unit PO DAILY 09/01/20 09/01/20 History Mcg = 1000 Iu)] Cranberry Fruit Extract [Cranberry] 200 mg PO DAILY 09/01/20 09/01/20 History Docusate [Colace] 200 mg PO DAILY 09/01/20 09/01/20 History Furosemide [Lasix] 20 mg PO DAILY 09/01/20 09/01/20 History Garlic 1 tab PO DAILY 09/01/20 09/01/20 History Gemfibrozil [Lopid] 600 mg PO DAILY 09/01/20 09/01/20 History Glucosamine Sulfate 500 mg PO DAILY 09/01/20 09/01/20 History Krill Oil 500 mg PO DAILY 09/01/20 09/01/20 History Lansoprazole 30 mg PO DAILY 09/01/20 09/01/20 History Levothyroxine Sodium [Synthroid] 75 mcg PO DAILY 09/01/20 09/01/20 History Meloxicam [Mobic] 7.5 mg PO BID 09/01/20 09/01/20 History Montelukast [Singulair] 10 mg PO DAILY 09/01/20 09/01/20 History Multivitamins, Thera [Multivitamin 1 tab PO DAILY 09/01/20 09/01/20 History (formulary)] Potassium Chloride [Klor-Con 20] 20 meq PO DAILY 09/01/20 09/01/20 History Vitamin E Acetate [Vitamin E] 200 unit PO DAILY 09/01/20 09/01/20 History traMADol HCL [Ultram] 50 mg PO TID PRN 09/01/20 09/01/20 History Allergies Allergy/AdvReac Type Severity Reaction Status Date / Time Penicillins Allergy Unknown Verified 09/01/20 07:50 Childhood Physical Exam Vitals: Vital Signs Temp Pulse Pulse Resp BP BP BP 09/02/20 07:57 76 09/02/20 07:42 76 09/02/20 04:00 98.1 F 77 19 136/63 10/26/20 23:28 98 F 90 18 141/78 09/01/20 20:00 98.2 F 85 19 163/91 09/01/20 19:20 80 16 09/01/20 19:10 81 16 09/01/20 14:58 98.1 F 81 16 138/80 09/01/20 11:44 97.6 F 66 20 165/74 09/01/20 10:03 97.9 F 63 18 158/93 Pulse Ox 09/02/20 07:57 09/02/20 07:42 09/02/20 04:00 94 L 09/01/20 23:28 96 09/01/20 20:00 97 09/01/20 19:20 09/01/20 19:10 09/01/20 14:58 97 09/01/20 11:44 96 09/01/20 10:03 97 Intake and Output 09/01/20 09/02/20 09/02/20 22:59 06:59 14:59 Output Total 500 640 Balance -500 -640 Output: Urine 500 640 Other: # Voids 1 1 Weight 80.6 kg Results 09/01/20 06:52 09/01/20 06:52 Cardiac Enzymes 09/01/20 09/01/20 Range/Units 10:31 12:35 Troponin I 0.071 H* 0.065 H* (0.000-0.034) ng/mL Current Medications Generic Name Dose Route Start Last Admin Trade Name Freq PRN Reason Stop Dose Admin Albuterol Sulfate 2.5 mg 09/01/20 09:15 09/02/20 07:42 Albuterol Nebulized 2.5 Mg/3 Ml INHALATION 2.5 mg RT-QID PRN Administration Shortness Of Breath Aspirin 81 mg 09/01/20 10:00 09/01/20 11:57 Aspirin 81 Mg PO 81 mg DAILY ИРИНА Administration Budesonide 0.5 mg 09/01/20 20:00 09/02/20 07:42 Budesonide 0.5 Mg/2 Ml Nebu INHALATION 0.5 mg RT-BID ИРИНА Administration Docusate Sodium 200 mg 09/01/20 10:00 09/01/20 11:58 Docusate 100 Mg Cap PO 200 mg DAILY ИРИНА Administration Fenofibrate 160 mg 09/02/20 09:00 Fenofibrate 160 Mg Tab PO DAILY [facility] Furosemide 20 mg 09/01/20 10:00 09/01/20 11:58 Furosemide 20 Mg Tab PO 20 mg DAILY ИРИНА Administration Heparin Sodium (Porcine) 5,000 unit 09/01/20 21:00 09/01/20 20:20 Heparin Sodium,Porcine 5,000 Unit/Ml 1 Ml Vial SQ 5,000 unit Q12HR ИРИНА Administration Sodium Chloride 1,000 mls @ 60 mls/hr 09/01/20 09:30 09/02/20 06:08 Saline 0.9% IV Not Given .[id number] ИРИНА Ceftriaxone Sodium 1 gm/ 50 mls @ 100 mls/hr 09/02/20 09:00 Sodium Chloride IVPB Q24HR [facility] Levothyroxine Sodium 75 mcg 09/01/20 10:00 09/02/20 06:11 Levothyroxine 75 Mcg Tab PO 75 mcg DAILY@0630 ИРИНА Administration Loratadine 10 mg 09/01/20 10:00 09/01/20 11:58 Loratadine 10 Mg Tab PO 10 mg DAILY ИРИНА Administration Meclizine HCl 12.5 mg 09/01/20 21:00 09/01/20 20:21 Meclizine 12.5 Mg Tab PO 12.5 mg BID ИРИНА Administration Meloxicam 7.5 mg 09/01/20 21:00 09/01/20 20:21 Meloxicam 7.5 Mg Tab PO 7.5 mg BID ИРИНА Administration Montelukast Sodium 10 mg 09/02/20 09:00 Montelukast 10 Mg Tab PO DAILY [facility] Naloxone HCl 0.2 mg 09/01/20 09:30 Naloxone 0.4 Mg/Ml 1 Ml Vial IV Q2M PRN Opioid Reversal Ondansetron HCl 4 mg 09/01/20 11:46 09/01/20 20:20 Ondansetron 4 Mg/2 Ml Vial IVP 4 mg Q6HR PRN Administration Nausea And Vomiting Pantoprazole Sodium 40 mg 09/01/20 10:00 09/02/20 06:11 Pantoprazole 40 Mg Tablet PO 40 mg [id number] ИРИНА Administration Potassium Chloride 20 meq 09/01/20 10:00 09/01/20 11:58 Potassium Chloride Er 20 Meq Tab.Er PO 20 meq DAILY ИРИНА Administration Tramadol HCl 50 mg 09/01/20 09:15 Tramadol 50 Mg Tab PO TID PRN Pain Intake and Output 09/01/20 09/02/20 09/02/20 22:59 06:59 14:59 Output Total 500 640 Balance -500 -640 Output: Urine 500 640 Other: # Voids 1 1 Weight 80.6 kg 09/01/20 06:52 09/01/20 06:52
--- NOTE | 2020-09-02 11:21 | P.STRESS ---
- Stress Test Note Stress Test Results/Findings: Exam Performed: dobutamine stress echo with con Exam Date: 09/02/20 Reason for Exam: ELEVATED TROPONIN Height: 5 ft 6 in Weight: 80.6 kg Protocol: DOBUTAMINE STRESS ECHO W/ LUMASON Stage: 30 mcg Duration of Exercise: 8:47 Resting Heart Rate: 70 Resting Blood Pressure: 138/73 Maximum Achieved Heart Rate: 140 Maximum Achieved Blood Pressure: 145/86 85% PMHR: 121 100% PMHR: 142 METS: NA Technologist Comment: Stress Test Results/Findings: This is 80-year-old female with history of hypercholesterolemia, smoking history is admitted to the hospital with dizziness and positive troponin. Stress data: Baseline EKG showed sinus rhythm with evidence of right bundle- branch block with occasional APCs. Blood pressure at rest is 138/73, pulse rate of 70. A standard dose of dobutamine was initiated and was titrated to 30 mics, achieving a maximum rate of 140 which is more than 85% predicted heart rate. Patient. EKGs taken during and after the infusion continued to show right bundle-branch block without significant deviation from the baseline. Occasional APCs seen during the exercise. Echo data: Baseline echo images show normal wall motion and thickening. Exercise echo images showed augmentation of wall motion and thickening in all the segments. The study is done with contrast. Final impression: #1. Negative dobutamine stress test #2. Negative dobutamine stress echo
[2020-09-02] MEDS: DOCUSATE 100 MG CAP PO SCH (12:33)
[2020-09-02] MEDS: HEPARIN SODIUM,PORCINE 5,000 UNIT/ML 1 ML VIAL SQ SCH ×2 (12:33→22:15)
[2020-09-02] MEDS: MONTELUKAST 10 MG TAB PO SCH (12:33)
[2020-09-02] MEDS: MECLIZINE 12.5 MG TAB PO SCH ×3 (12:34→23:10)
[2020-09-02] MEDS: FUROSEMIDE 20 MG TAB PO SCH (12:34)
[2020-09-02] MEDS: ASPIRIN 81 MG PO SCH (12:34)
[2020-09-02] MEDS: LORATADINE 10 MG TAB PO SCH (12:34)
[2020-09-02] MEDS: FENOFIBRATE 160 MG TAB PO SCH (12:34)
[2020-09-02] MEDS: MELOXICAM 7.5 MG TAB PO SCH ×2 (12:34→22:16)
[2020-09-02] MEDS: POTASSIUM CHLORIDE ER 20 MEQ TAB.ER PO SCH (12:35)
[2020-09-02] MEDS: ATORVASTATIN 40 MG TAB PO SCH ×3 (12:39→17:15)
[2020-09-02] MEDS: METOPROLOL TARTRATE 25 MG TAB PO SCH ×2 (12:39→22:16)
--- NOTE | 2020-09-02 12:48 | MR ---
MR brain without contrast HISTORY: Acute stroke, dizziness and diplopia Multiplanar multisequence imaging through the brain, correlation to CT brain 09/01/2020 There is restricted diffusion towards the convexity within the right parietal lobe, punctate focus as well as small foci within the left frontal lobe. Extensive confluent and scattered hyperintensities are present on inversion recovery T2-weighted sequences within the deep white matter, subcortical whi te matter, pericallosal white matter. Air-fluid levels present within the left maxillary sinus. There are normal vascular flow voids. The corpus callosum, pituitary, cervical medullary junction, cerebel lopontine angles are normal. The orbits show symmetric appearance. There is no hemorrhage or hydrocep halus. IMPRESSION: Subacute infarcts are small and bilaterally noted. Correlate for embolic phenomenon. Age- related changes of atrophy and chronic small vessel ischemia. Correlate for left maxillary sinusitis.
--- NOTE | 2020-09-02 14:03 | P.PN ---
Subjective Progress Note Date: 09/02/20 HISTORY OF PRESENT ILLNESS This is a 80-year-old female patient of Dr. Acharya and Dr. Ochoa with past medical history of frequent urinary tract infections, mild intermittent asthma, COPD, hyperlipidemia, hypothyroidism, gastroesophageal reflux disease, history of UTI and sepsis in 2011 requiring ventilator support and hemodialysis, osteoporosis. Patient complains of dizziness like the room was spinning. She denies having any chest pain, no shortness of breath, no nausea, no fever or chills. No diarrhea. No abdominal pain. Patient came into [facility] emergency center for evaluation. She is found to be afebrile, heart rate 58, blood pressure 176/73, pulse ox 100% on room air. With no acute ST changes. CBC unremarkable. Electrolytes and renal function unremarkable. Blood sugar 147. Liver function tests were normal. This urinalysis revealed leukoesterase large, WBC 70, bacteria rare. Troponin 0.078. Chest x-ray reveals cardiomegaly appears increased from 2018. Subtle patchy atelectasis versus early infiltrate at the right mid lung. Suspect underlying moderate size hiatal hernia CAT scan of the brain showed mild atrophy and moderate patchy changes of chronic small vessel ischemic change. No acute intracranial abnormality. Correlate for acute left maxillary sinusitis. 2 patient admitted to the cardiac stepdown unit. Echocardiogram reveals EF of 60-65% with mild concentric left hypertrophy, mild mitral regurgitation, trace tricuspid regurgitation, aortic root dilated measuring 3.8 cm. Small pericardial effusion. Carotid ultrasound reveals no hemodynamically significant stenosis bilaterally. Consult with cardiology and neurology. 09/02: Patient continues to complain of dizziness but feels a little bit better from yesterday. She was able to get to the commode chair only. Patient has been seen by neurology and cardiology. Meclizine has been started for dizziness. MRI of the brain reveals subacute infarcts are small and bilateral. Correlate for embolic phenomenon. Age related changes of atrophy and chronic small vessel ischemia. Correlate for left maxillary sinusitis. Dopamine stress echo is negative and patient has been subsequently cleared by cardiology for discharge with plan to follow-up with Dr. Ochoa in the office. Cardiology has been updated on MRI report. Patient did have episode of A. fib during UTI and sepsis in 2011 but no further episodes. She has not been anticoagulated. REVIEW OF SYSTEMS Constitutional: No fever, no chills, no night sweats. No weight change. No weakness, fatigue or lethargy. No daytime sleepiness. EENT: No headache. No blurred vision or double vision, no loss of vision. No loss of Hearing, no ringing in the ears, reports dizziness. No nasal drainage or congestion. No epistaxis. No sore throat. Lungs: No shortness of breath, cough, no sputum production. No wheezing. Cardiovascular: No chest pain, no lower extremity edema. No palpitations. No paroxysmal nocturnal dyspnea. No orthopnea. No lightheadedness reports dizziness. No syncopal episodes. Abdominal: No abdominal pain. No nausea, vomiting. No diarrhea. No constipation. No bloody or tarry stools.. No loss of appetite. Genitourinary: No dysuria, increased frequency, urgency. No urinary retention. Musculoskeletal: No myalgias. No muscle weakness, no gait dysfunction, no frequent falls. No back pain. No neck pain. Integumentary: No wounds, no lesions. No rash or pruritus. No unusual bruising. No change in hair or nails. Neurologic: No aphasia. No facial droop. No change in mentation. No head injury. No headache. No paralysis. No paresthesia. Psychiatric: No depression. No anxiety. No mood swings. Endocrine: No abnormal blood sugars. No weight change. No excessive sweating or thirst. No cold intolerance. PHYSICAL EXAMINATION Gen: This is a 80-year-old female. Patient is resting in bed and appears to be comfortable and in no acute distress. HEENT: Head is atraumatic, normocephalic. Pupils equal, round. Sclerae is anicteric. + nystagmus. Mucous members of the mouth are moist. NECK: Supple. No JVD. No lymphadenopathy. No thyromegaly. LUNGS: Clear to auscultation. No wheezes or rhonchi. No intercostal retractions. HEART: Regular rate and rhythm. No murmur. ABDOMEN: Soft. Bowel sounds are present. No masses. No tenderness. EXTREMITIES: No pedal edema. No calf tenderness. NEUROLOGICAL: Patient is awake, alert and oriented x3. Cranial nerves 2 through 12 are grossly intact. ASSESSMENT AND PLAN 1. Dizziness possibly related to subacute bilateral infarcts, suspected embolic phenomenon, probable underlying A. fib. Consult with cardiology and neurology appreciated. Meclizine 25 mg 3 times daily as needed. Anticoagulation per cardiology. PT, OT, speech therapy added. 2. Acute urinary tract infection. Await urine culture, Rocephin 1 g daily. Urine culture reveals normal skin lisa. 3. Mild intermittent asthma, COPD without exacerbation. Continue Singulair 10 mg daily, albuterol nebulizer 4 times daily as needed and Pulmicort 0.5 mg twice daily 4. Hyperlipidemia. Continue fenofibrate. 5. Hypothyroidism. Continue levothyroxine 75 g daily 6. Gastroesophageal reflux disease and GI prophylaxis. Protonix daily. 7. DVT prophylaxis. Heparin subcu. 8. Paroxysmal atrial fibrillation with episode in 2012 during episode of sepsis. No further episodes have been documented. Patient admitted to the hospital for minimum of 2 nights stay. Discharge plan:home. Impression and plan of care have been directed as dictated by the signing physician. Grace Brush nurse practitioner acting as scribe for signing physician. Objective - Vital Signs Vital signs: Vital Signs Temp 98.1 F 09/02/20 04:00 Pulse 76 09/02/20 07:57 Resp 19 09/02/20 04:00 BP 136/63 09/02/20 04:00 Pulse Ox 94 L 09/02/20 04:00 Intake & Output 09/01/20 09/02/20 09/02/20 18:59 06:59 18:59 Output Total 1000 640 300 Balance -1000 -640 -300 Weight 81.647 kg 80.6 kg Output: Urine 1000 640 300 Other: # Voids 1 1 - Labs CBC & Chem 7: 09/01/20 06:52 09/01/20 06:52 Labs: Abnormal Lab Results - Last 24 Hours (Table) 09/01/20 09/01/20 Range/Units 10:31 12:35 Troponin I 0.071 H* 0.065 H* (0.000-0.034) ng/mL Microbiology - Last 24 Hours (Table) 09/01/20 06:52 Urine Culture - Preliminary Urine,Voided
--- NOTE | 2020-09-02 16:43 | P.PN ---
Subjective Progress Note Date: 09/02/20 Patient was seen at bedside and she stated that she is doing better today compared to yesterday. She feels her dizziness is somewhat better today compared to yesterday. But continues to have some dizziness especially with the positional. The has some nausea but not as bad as yesterday. Denies any vomit ing. Chin daughters at bedside and she feels that the patient is doing that better today. She stated that she was on aspirin 81 mg at home she was not on any statin because she felt that that was affecting her joints she doesn't recall the medication and what the dose was. For her proximal atrial fibrillation history she said that she was not on any anticoagulation was about 7-8 years ago and t hat resolved on its own. Patient was started on Eliquis 5mg bid as inpatient. Objective - Vital Signs Vital signs: Vital Signs Temp 98.2 F 09/02/20 08:00 Pulse 83 09/02/20 16:06 Resp 18 09/02/20 12:00 BP 103/75 09/02/20 12:00 Pulse Ox 94 L 09/02/20 12:00 Intake & Output 09/01/20 09/02/20 09/02/20 18:59 06:59 18:59 Intake Total 230 Output Total 1000 640 700 Balance -1000 -640 -470 Weight 81.647 kg 80.6 kg 80.6 kg Intake: Oral 230 Output: Urine 1000 640 700 Other: # Voids 1 1 1 - Exam GENERAL: The patient is lying in bed and is not in acute distress. NEUROLOGICAL: Higher mental function: The patient is awake, alert, oriented to self, place and time. Patient is following commands. No aphasia and no neglect. Cranial nerves: The pupils are round, equal and reactive to light and accommodation. Visual johansen are full to confrontation throughout. Extraocular movement is intact and positivie nystagmus noted in all directions, nystagmus was rotatory. Had diplopia [id number] upon looking to lateral gaze and r esolved when covering either eye. Facial sensation is normal to touch throughout. The facial strength is normal throughout. Hearing is mild hearing loss bilaterally to hand rub. Tongue is midline and moved [id number] without any difficulty. No dysarthria is noted. Shoulder shrug is normal bilaterally. Motor: The strength is 5 over 5 throughout. Normal tone and bulk. Cerebellum: Normal finger to nose bilaterally. Sensation: Sensation is normal to touch throughout. Reflexes (right/left): 2+ throughout. Plantars are downgoing bilaterally. - Labs CBC & Chem 7: 09/01/20 06:52 09/01/20 06:52 Labs: Microbiology - Last 24 Hours (Table) 09/01/20 06:52 Urine Culture - Final Urine,Voided Assessment and Plan Assessment: Subacute stroke in multiple territroy (punctate focus on right parietal and left frontal). Seemed cardioembolic Dizziness and diplopia: Seems more benign positional vertigo--improving Proximal atrial fibrillation Elevated troponin Urinary tract infection Plan: MRI of the brain: Was reported as subacute infarct are small bilaterally noted. Correlate for embolic phenomena. Age-related changes of atrophy and chronic small vessel ischemia. Correlate for left maxillary sinus sinusitis. In the body it's mentioned that the patient had restricted diffusion towards the convexity within the right parietal lobe, punctate focus as well as small foci in the left frontal lobe. I personally reviewed the MRI of the brain and I do agree that the on the DWI image the patient does have subacute changes noted the radiologist. 2D echo: Mild concentric left ventricular hypertrophy. Ejection fraction of 60-65%. Left atrium is mildly dilated. Dobutamine stress echo was done on 09/02/2020 and it was negative. Carotid duplex: No hemodynamically significant stenosis bilaterally. Currently the patient is on Eliquis 5 mg twice a day because of her paroxysmal atrial fibrillation and she was started on it during this hospital stay (he was on aspirin 81 mg at home). Also the patient is on Lipitor 40 mg daily and this to be continued (patient stated that that she had that joint pain when that she was on the statins but she doesn't recall the dose or the name or the medication. As she is in agreement of starting Lipitor 40 mg and if she has any side effects we can either lower or change to a different medication). Lipid panel on 07/11/2020: Triglyceride 69, cholesterol is 226, LDL is 162, HDL is 50. There is no need to repeat the that lipid panel again. The goal of LDL for stroke is less than 70. TSH: Is 1.82. A1c is 5.8 on 07/11/2020. As no need to repeat the TSH ordered a hemoglobin A1c since the recent Recommend getting a transesophageal echocardiogram to rule out any left atrial appendage thrombus or intracardiac etiology leading to stroke. Orhtostatic vitals are negative. Continue meclizine 12.5 mg 1 tab bid. Continue Zofran when necessary as needed. For elevated troponin, cardiology are on board. consultation. We'll defer the management of urinary tract infection to the primary team. Upon discharge the patient needs to follow-up with a neurologist as outpatient. The plan was discussed with the patient and the as well as her daughter who is the guardian via phone. Will Continue to follow. Johnson Brito M.D. Neuro-hospitalist Time with Patient: Less than 30
[2020-09-02] MEDS: APIXABAN 5 MG TAB PO SCH (22:16)
[2020-09-03] MEDS: LEVOTHYROXINE 75 MCG TAB PO SCH ×2 (06:12→09:14)
[2020-09-03] MEDS: PANTOPRAZOLE 40 MG TABLET PO SCH ×2 (06:13→09:14)
[2020-09-03] MEDS: BUDESONIDE 0.5 MG/2 ML NEBU INHALATION SCH ×2 (07:38→19:39)
[2020-09-03] MEDS: ALBUTEROL NEBULIZED 2.5 MG/3 ML INHALATION PRN ×2 (07:38→11:21)
[2020-09-03] MEDS: DOCUSATE 100 MG CAP PO SCH (08:58)
[2020-09-03] MEDS: MECLIZINE 12.5 MG TAB PO SCH ×3 (08:58→21:05)
[2020-09-03] MEDS: POTASSIUM CHLORIDE ER 20 MEQ TAB.ER PO SCH (08:59)
[2020-09-03] MEDS: MELOXICAM 7.5 MG TAB PO SCH ×2 (08:59→21:05)
[2020-09-03] MEDS: MONTELUKAST 10 MG TAB PO SCH (08:59)
[2020-09-03] MEDS: FUROSEMIDE 20 MG TAB PO SCH (08:59)
[2020-09-03] MEDS: ATORVASTATIN 40 MG TAB PO SCH (08:59)
[2020-09-03] MEDS: LORATADINE 10 MG TAB PO SCH (08:59)
[2020-09-03] MEDS: APIXABAN 5 MG TAB PO SCH ×2 (08:59→21:04)
[2020-09-03] MEDS: METOPROLOL TARTRATE 25 MG TAB PO SCH ×2 (09:00→21:06)
[2020-09-03] MEDS: FENOFIBRATE 160 MG TAB PO SCH (09:01)
[2020-09-03] MEDS ORDERED: fentaNYL (PF) 50 MCG/ML 2 ML AMP ONE (10:06)
[2020-09-03] MEDS ORDERED: MIDAZOLAM 2 MG/2 ML VIAL IV ONE (10:35)
[2020-09-03] MEDS ORDERED: fentaNYL (PF) 50 MCG/ML 2 ML AMP IV ONE (10:35)
[2020-09-03] MEDS ORDERED: BENZOCAINE SPRAY 1 CAN MUCOUS MEM ONE (10:35)
[2020-09-03] MEDS ORDERED: IV FLUID CONTINUATION 1,000 ML IV ONE (10:35)
--- NOTE | 2020-09-03 13:40 | P.PN ---
Subjective Progress Note Date: 09/03/20 HISTORY OF PRESENT ILLNESS This is a 80-year-old female patient of Dr. Acharya and Dr. Ochoa with past medical history of frequent urinary tract infections, mild intermittent asthma, COPD, hyperlipidemia, hypothyroidism, gastroesophageal reflux disease, history of UTI and sepsis in 2011 requiring ventilator support and hemodialysis, osteoporosis. Patient complains of dizziness like the room was spinning. She denies having any chest pain, no shortness of breath, no nausea, no fever or chills. No diarrhea. No abdominal pain. Patient came into [facility] emergency center for evaluation. She is found to be afebrile, heart rate 58, blood pressure 176/73, pulse ox 100% on room air. With no acute ST changes. CBC unremarkable. Electrolytes and renal function unremarkable. Blood sugar 147. Liver function tests were normal. This urinalysis revealed leukoesterase large, WBC 70, bacteria rare. Troponin 0.078. Chest x-ray reveals cardiomegaly appears increased from 2018. Subtle patchy atelectasis versus early infiltrate at the right mid lung. Suspect underlying moderate size hiatal hernia CAT scan of the brain showed mild atrophy and moderate patchy changes of chronic small vessel ischemic change. No acute intracranial abnormality. Correlate for acute left maxillary sinusitis. 2 patient admitted to the cardiac stepdown unit. Echocardiogram reveals EF of 60-65% with mild concentric left hypertrophy, mild mitral regurgitation, trace tricuspid regurgitation, aortic root dilated measuring 3.8 cm. Small pericardial effusion. Carotid ultrasound reveals no hemodynamically significant stenosis bilaterally. Consult with cardiology and neurology. 09/02: Patient continues to complain of dizziness but feels a little bit better from yesterday. She was able to get to the commode chair only. Patient has been seen by neurology and cardiology. Meclizine has been started for dizziness. MRI of the brain reveals subacute infarcts are small and bilateral. Correlate for embolic phenomenon. Age related changes of atrophy and chronic small vessel ischemia. Correlate for left maxillary sinusitis. Dopamine stress echo is negative and patient has been subsequently cleared by cardiology for discharge with plan to follow-up with Dr. Ochoa in the office. Cardiology has been updated on MRI report. Patient did have episode of A. fib during UTI and sepsis in 2011 but no further episodes. She has not been anticoagulated. 10/28: Patient is scheduled for PERCY today. Neurology has recommended PERCY, continue meclizine 12.5 mg twice daily, Zofran as needed, follow-up with neurologist as an outpatient. Therapies are following the patient. She has been afebrile, heart rate 58, blood pressure 130/66, pulse ox 96% on room air. hall monitor has been a sinus rhythm. Anticipate probable discharge tomorrow. REVIEW OF SYSTEMS Constitutional: No fever, no chills, no night sweats. No weight change. No weakness, fatigue or lethargy. No daytime sleepiness. EENT: No headache. No blurred vision or double vision, no loss of vision. No loss of Hearing, no ringing in the ears, reports dizziness. Lungs: No shortness of breath, cough, no sputum production. No wheezing. Cardiovascular: No chest pain, no lower extremity edema. No palpitations. No paroxysmal nocturnal dyspnea. No orthopnea. No lightheadedness reports dizziness. No syncopal episodes. Abdominal: No abdominal pain. No nausea, vomiting. No diarrhea. No constipation. No bloody or tarry stools.. No loss of appetite. Genitourinary: No dysuria, increased frequency, urgency. No urinary retention. Musculoskeletal: No myalgias. No muscle weakness, no gait dysfunction, no frequent falls. No back pain. No neck pain. Integumentary: No wounds, no lesions. No rash or pruritus. No unusual bruising. No change in hair or nails. Neurologic: No aphasia. No facial droop. No change in mentation. No head injury. No headache. No paralysis. No paresthesia. Psychiatric: No depression. No anxiety. No mood swings. Endocrine: No abnormal blood sugars. No weight change. No excessive sweating or thirst. No cold intolerance. PHYSICAL EXAMINATION Gen: This is a 80-year-old female. Patient is resting in bed and appears to be comfortable. HEENT: Head is atraumatic, normocephalic. Pupils equal, round. Sclerae is anicteric. + nystagmus. Mucous members of the mouth are moist. NECK: Supple. No JVD. No lymphadenopathy. No thyromegaly. LUNGS: Clear to auscultation. No wheezes or rhonchi. No intercostal retractions. HEART: Regular rate and rhythm. No murmur. ABDOMEN: Soft. Bowel sounds are present. No masses. No tenderness. EXTREMITIES: No pedal edema. No calf tenderness. NEUROLOGICAL: Patient is awake, alert and oriented x3. Cranial nerves 2 through 12 are grossly intact. ASSESSMENT AND PLAN 1. Dizziness possibly related to subacute bilateral infarcts, suspected embolic phenomenon, probable underlying A. fib. Consult with cardiology and neurology appreciated. Meclizine 12.5 mg 2 times daily as needed. Eliquis started per cardiology. PT, OT, speech therapy on consult. 2. Acute urinary tract infection. Await urine culture, Rocephin 1 g daily. Urine culture reveals normal skin lisa. 3. Mild intermittent asthma, COPD without exacerbation. Continue Singulair 10 mg daily, albuterol nebulizer 4 times daily as needed and Pulmicort 0.5 mg twice daily 4. Hyperlipidemia. Continue fenofibrate. 5. Hypothyroidism. Continue levothyroxine 75 g daily 6. Gastroesophageal reflux disease and GI prophylaxis. Protonix daily. 7. DVT prophylaxis. Heparin subcu. 8. Paroxysmal atrial fibrillation with episode in 2011 during episode of sepsis. No further episodes have been documented. Discharge plan:home tomorrow. Impression and plan of care have been directed as dictated by the signing physician. Grace Brush nurse practitioner acting as scribe for signing physician. Objective - Vital Signs Vital signs: Vital Signs Temp 97.9 F 09/03/20 04:00 Pulse 60 09/03/20 07:54 Resp 17 09/03/20 04:00 BP 156/74 09/03/20 04:00 Pulse Ox 96 09/03/20 04:00 Intake & Output 09/02/20 09/03/20 09/03/20 18:59 06:59 18:59 Intake Total 430 Output Total 1300 200 Balance -870 -200 Weight 80.6 kg 84.1 kg Intake: Oral 430 Output: Urine 1300 200 Other: # Voids 2 1 # Bowel Movements 1 - Labs CBC & Chem 7: 09/01/20 06:52 09/01/20 06:52 Labs: Microbiology - Last 24 Hours (Table) 09/01/20 06:52 Urine Culture - Final Urine,Voided
[2020-09-03] MEDS: HEPARIN SODIUM,PORCINE 5,000 UNIT/ML 1 ML VIAL SQ SCH ×2 (17:28→21:06)
--- NOTE | 2020-09-03 19:02 | P.PN ---
Subjective Progress Note Date: 09/03/20 Patient was seen at bedside and the she feels like she is doing better today compared to yesterday. She has minimal dizziness with movement but she said that that she's doing better today compared to yesterday. She had a transesophageal echocardiogram today and per the cardiology nurse practitioner she notified me that the patient the PERCY and did not show any thrombus and it was normal. Objective - Vital Signs Vital signs: Vital Signs Temp 96.5 F L 09/03/20 08:00 Pulse 85 09/03/20 16:00 Resp 18 09/03/20 16:00 BP 171/91 09/03/20 16:00 Pulse Ox 92 L 09/03/20 16:00 Intake & Output 09/02/20 09/03/20 09/03/20 18:59 06:59 18:59 Intake Total 430 455 Output Total 1300 200 Balance -870 -200 455 Weight 80.6 kg 84.1 kg Intake: IV 75 Oral 430 380 Output: Urine 1300 200 Other: # Voids 2 1 2 # Bowel Movements 1 1 - Exam GENERAL: The patient is lying in bed and is not in acute distress. NEUROLOGICAL: Higher mental function: The patient is awake, alert, oriented to self, place and time. Patient is following commands. No aphasia and no neglect. Cranial nerves: The pupils are round, equal and reactive to light and accommodation. Visual johansen are full to confrontation throughout. Extraocular movement is intact and mild positivie nystagmus noted in all directions, nystagmus was rotatory. Had diplopia [id number] upon looking to lateral gaze and resolved when covering either eye. Facial sensation is normal to touch throughout. The facial strength is normal throughout. Hearing is mild hearing loss bilaterally to hand rub. Tongue is midline and moved [id number] without any difficulty. No dysarthria is noted. Shoulder shrug is normal bilaterally. Motor: The strength is 5 over 5 throughout. Normal tone and bulk. Cerebellum: Normal finger to nose bilaterally. Sensation: Sensation is normal to touch throughout. Reflexes (right/left): 2+ throughout. Plantars are downgoing bilaterally. - Labs CBC & Chem 7: 09/01/20 06:52 09/01/20 06:52 Assessment and Plan Assessment: Subacute stroke in multiple territroy (punctate focus on right parietal and left frontal). Seemed cardioembolic Dizziness and diplopia: Seems more benign positional vertigo--improving Proximal atrial fibrillation Elevated troponin Urinary tract infection Plan: MRI of the brain: Was reported as subacute infarct are small bilaterally noted. Correlate for embolic phenomena. Age-related changes of atrophy and chronic small vessel ischemia. Correlate for left maxillary sinus sinusitis. In the body it's mentioned that the patient had restricted diffusion towards the convexity within the right parietal lobe, punctate focus as well as small foci in the left frontal lobe. I personally reviewed the MRI of the brain and I do agree that the on the DWI image the patient does have subacute changes noted the radiologist. 2D echo: Mild concentric left ventricular hypertrophy. Ejection fraction of 60- 65%. Left atrium is mildly dilated. Dobutamine stress echo was done on 09/02/2020 and it was negative. Carotid duplex: No hemodynamically significant stenosis bilaterally. Currently the patient is on Eliquis 5 mg twice a day because of her paroxysmal atrial fibrillation and she was started on it during this hospital stay (he was on aspirin 81 mg at home). Also the patient is on Lipitor 40 mg daily and this to be continued (patient stated that that she had that joint pain when that she was on the statins but she doesn't recall the dose or the name or the medication. As she is in agreement of starting Lipitor 40 mg and if she has any side effects we can either lower or change to a different medication). Lipid panel on 07/11/2020: Triglyceride 69, cholesterol is 226, LDL is 162, HDL is 50. There is no need to repeat the that lipid panel again. The goal of LDL for stroke is less than 70. TSH: Is 1.82. A1c is 5.8 on 07/11/2020. As no need to repeat the TSH ordered a hemoglobin A1c since the recent Transesophageal echocardiogram: Per cardiology nurse practitioner she notified me that it was normal and does not show any thrombus. Orhtostatic vitals are negative. Continue meclizine 12.5 mg 1 tab bid. Continue Zofran when necessary as needed. For elevated troponin, cardiology are on board. consultation. We'll defer the management of urinary tract infection to the primary team. Upon discharge the patient needs to follow-up with a neurologist as outpatient. The plan was discussed with the patient as well as with the primary team. Will Continue to follow. Johnson Brito M.D. Neuro-hospitalist Time with Patient: Less than 30
[2020-09-03] MEDS: SODIUM CHLORIDE 0.9% 1,000 ML IV SCH (20:14)
[2020-09-04] MEDS: PANTOPRAZOLE 40 MG TABLET PO SCH (06:35)
[2020-09-04] MEDS: LEVOTHYROXINE 75 MCG TAB PO SCH (06:35)
[2020-09-04] MEDS: SODIUM CHLORIDE 0.9% 1,000 ML IV SCH (06:35)
[2020-09-04] MEDS: ALBUTEROL NEBULIZED 2.5 MG/3 ML INHALATION PRN (07:37)
[2020-09-04] MEDS: BUDESONIDE 0.5 MG/2 ML NEBU INHALATION SCH (07:37)
[2020-09-04] MEDS: FUROSEMIDE 20 MG TAB PO SCH (09:42)
[2020-09-04] MEDS: APIXABAN 5 MG TAB PO SCH (09:42)
[2020-09-04] MEDS: DOCUSATE 100 MG CAP PO SCH (09:42)
[2020-09-04] MEDS: ATORVASTATIN 40 MG TAB PO SCH (09:42)
[2020-09-04] MEDS: MELOXICAM 7.5 MG TAB PO SCH (09:43)
[2020-09-04] MEDS: HEPARIN SODIUM,PORCINE 5,000 UNIT/ML 1 ML VIAL SQ SCH (09:43)
[2020-09-04] MEDS: LORATADINE 10 MG TAB PO SCH ×2 (09:43→09:45)
[2020-09-04] MEDS: METOPROLOL TARTRATE 25 MG TAB PO SCH (09:44)
[2020-09-04] MEDS: POTASSIUM CHLORIDE ER 20 MEQ TAB.ER PO SCH (09:44)
[2020-09-04] MEDS: MONTELUKAST 10 MG TAB PO SCH (09:44)
[2020-09-04] MEDS: FENOFIBRATE 160 MG TAB PO SCH (09:44)
[2020-09-04] MEDS: MECLIZINE 12.5 MG TAB PO SCH (09:58)
--- NOTE | 2020-09-04 10:57 | P.DS ---
Providers Date of admission: 09/02/20 14:06 Expected date of discharge: 09/04/20 Attending physician: Reese Luz Consults: 09/01/20 09:20 Consult Physician Routine Consulting Provider: Zach Caba Consult Reason/Comments: dizziness Do you want consulting provider notified?: Yes Consult Physician Routine Consulting Provider: Johnson Brito Consult Reason/Comments: dizziness Do you want consulting provider notified?: Yes 09/02/20 19:18 Consult Physician Routine Consulting Provider: Zach Caba Consult Reason/Comments: PERCY Do you want consulting provider notified?: Yes Primary care physician: [facility] Course: HISTORY OF PRESENT ILLNESS This is a 80-year-old female patient of Dr. Acharya and Dr. Ochoa with past medical history of frequent urinary tract infections, mild intermittent asthma, COPD, hyperlipidemia, hypothyroidism, gastroesophageal reflux disease, history of UTI and sepsis in 2011 requiring ventilator support and hemodialysis, osteoporosis. Patient complains of dizziness like the room was spinning. She denies having any chest pain, no shortness of breath, no nausea, no fever or chills. No diarrhea. No abdominal pain. Patient came into [facility] emergency center for evaluation. She is found to be afebrile, heart rate 58, blood pressure 176/73, pulse ox 100% on room air. With no acute ST changes. CBC unremarkable. Electrolytes and renal function unremarkable. Blood sugar 147. Liver function tests were normal. This urinalysis revealed leukoesterase large, WBC 70, bacteria rare. Troponin 0.078. Chest x-ray reveals cardiomegaly appears increased from 2018. Subtle patchy atelectasis versus early infiltrate at the right mid lung. Suspect underlying moderate size hiatal hernia CAT scan of the brain showed mild atrophy and moderate patchy changes of chronic small vessel ischemic change. No acute intracranial abnormality. Correlate for acute left maxillary sinusitis. 2 patient admitted to the cardiac stepdown unit. Echocardiogram reveals EF of 60-65% with mild concentric left hypertrophy, mild mitral regurgitation, trace tricuspid regurgitation, aortic root dilated measuring 3.8 cm. Small pericardial effusion. Carotid ultrasound reveals no hemodynamically significant stenosis bilaterally. Consult with cardiology and neurology. 09/02: Patient continues to complain of dizziness but feels a little bit better from yesterday. She was able to get to the commode chair only. Patient has been seen by neurology and cardiology. Meclizine has been started for dizziness. MRI of the brain reveals subacute infarcts are small and bilateral. Correlate for embolic phenomenon. Age related changes of atrophy and chronic small vessel ischemia. Correlate for left maxillary sinusitis. Dopamine stress echo is negative and patient has been subsequently cleared by cardiology for discharge with plan to follow-up with Dr. Ochoa in the office. Cardiology has been updated on MRI report. Patient did have episode of A. fib during UTI and sepsis in 2011 but no further episodes. She has not been anticoagulated. 09/03: Patient is scheduled for PERCY today. Neurology has recommended PERCY, continue meclizine 12.5 mg twice daily, Zofran as needed, follow-up with neurologist as an outpatient. Therapies are following the patient. She has been afebrile, heart rate 58, blood pressure 130/66, pulse ox 96% on room air. school bus monitor has been a sinus rhythm. Anticipate probable discharge tomorrow. 09/04: Patient states that she is feeling better today. Physical therapy has evaluated and recommended home with home care. We will ask binder caser to make arrangements. She is planning to stay at her daughter's at discharge. Reg arding urinary tract infection, patient has completed course antibiotics will be discontinued. She has been afebrile, heart rate 58, blood pressure 137/72, pulse ox 95% on room air. Patient will be discharged home today in stable condition. ASSESSMENT AND PLAN 1. Dizziness possibly related to subacute bilateral infarcts, suspected embolic phenomenon secondary to underlying A. fib. 2. Acute urinary tract infection. 3. Mild intermittent asthma, COPD without exacerbation. 4. Hyperlipidemia. 5. Hypothyroidism. 6. Gastroesophageal reflux disease, 7. Paroxysmal atrial fibrillation with episode in 2012 during episode of sepsis. Discharge plan:home with home care Impression and plan of care have been directed as dictated by the signing physician. Grace Brush nurse practitioner acting as scribe for signing physician. Patient Condition at Discharge: Good Plan - Discharge Summary Discharge Rx Participant: No New Discharge Prescriptions: New Apixaban [Eliquis] 5 mg PO BID #60 tab Meclizine [Antivert] 12.5 mg PO TID tab Atorvastatin [Lipitor] 40 mg PO DAILY #30 tab Metoprolol Tartrate [Lopressor] 25 mg PO BID #60 tab Continue Docusate [Colace] 200 mg PO DAILY traMADol HCL [Ultram] 50 mg PO TID PRN PRN Reason: Pain Multivitamins, Thera [Multivitamin (formulary)] 1 tab PO DAILY Glucosamine Sulfate 500 mg PO DAILY Cholecalciferol [Vitamin D3 (25 Mcg = 1000 Iu)] 1,000 unit PO DAILY Albuterol Sulfate [Ventolin HFA] 1 - 2 puff INHALATION RT-Q6H PRN PRN Reason: Shortness Of Breath Potassium Chloride [Klor-Con 20] 20 meq PO DAILY Montelukast [Singulair] 10 mg PO DAILY Meloxicam [Mobic] 7.5 mg PO BID Levothyroxine Sodium [Synthroid] 75 mcg PO DAILY Lansoprazole 30 mg PO DAILY Gemfibrozil [Lopid] 600 mg PO DAILY Furosemide [Lasix] 20 mg PO DAILY Cetirizine HCl [Zyrtec] 10 mg PO DAILY Budesonide [Pulmicort] 0.5 mg INHALATION RT-BID PRN PRN Reason: Shortness Of Breath Albuterol Nebulized [Ventolin Nebulized] 2.5 mg INHALATION RT-QID PRN PRN Reason: Shortness Of Breath Vitamin E Acetate [Vitamin E] 200 unit PO DAILY Krill Oil 500 mg PO DAILY Garlic 1 tab PO DAILY Cranberry Fruit Extract [Cranberry] 200 mg PO DAILY Calcium Carbonate [Calcium] 600 mg PO DAILY Discontinued Aspirin EC [Ecotrin Low Dose] 81 mg PO DAILY Discharge Medication List Albuterol Nebulized [Ventolin Nebulized] 2.5 mg INHALATION RT-QID PRN 09/01/20 [History] Albuterol Sulfate [Ventolin HFA] 1 - 2 puff INHALATION RT-Q6H PRN 09/01/20 [History] Budesonide [Pulmicort] 0.5 mg INHALATION RT-BID PRN 09/01/20 [History] Calcium Carbonate [Calcium] 600 mg PO DAILY 09/01/20 [History] Cetirizine HCl [Zyrtec] 10 mg PO DAILY 09/01/20 [History] Cholecalciferol [Vitamin D3 (25 Mcg = 1000 Iu)] 1,000 unit PO DAILY 09/01/20 [History] Cranberry Fruit Extract [Cranberry] 200 mg PO DAILY 09/01/20 [History] Docusate [Colace] 200 mg PO DAILY 09/01/20 [History] Furosemide [Lasix] 20 mg PO DAILY 09/01/20 [History] Garlic 1 tab PO DAILY 09/01/20 [History] Gemfibrozil [Lopid] 600 mg PO DAILY 09/01/20 [History] Glucosamine Sulfate 500 mg PO DAILY 09/01/20 [History] Krill Oil 500 mg PO DAILY 09/01/20 [History] Lansoprazole 30 mg PO DAILY 09/01/20 [History] Levothyroxine Sodium [Synthroid] 75 mcg PO DAILY 09/01/20 [History] Meloxicam [Mobic] 7.5 mg PO BID 09/01/20 [History] Montelukast [Singulair] 10 mg PO DAILY 09/01/20 [History] Multivitamins, Thera [Multivitamin (formulary)] 1 tab PO DAILY 09/01/20 [History] Potassium Chloride [Klor-Con 20] 20 meq PO DAILY 09/01/20 [History] Vitamin E Acetate [Vitamin E] 200 unit PO DAILY 09/01/20 [History] traMADol HCL [Ultram] 50 mg PO TID PRN 09/01/20 [History] Apixaban [Eliquis] 5 mg PO BID #60 tab 09/02/20 [Rx] Atorvastatin [Lipitor] 40 mg PO DAILY #30 tab 09/04/20 [Rx] Meclizine [Antivert] 12.5 mg PO TID tab 09/04/20 [Rx] Metoprolol Tartrate [Lopressor] 25 mg PO BID #60 tab 09/04/20 [Rx] Follow up Appointment(s)/Referral(s): Ben Acharya DO [Primary Care Provider] - 1 Week Benny Madera DO [STAFF PHYSICIAN] - 1 Week Becky Ochoa MD [STAFF PHYSICIAN] - 2 Weeks Activity/Diet/Wound Care/Special Instructions: pts monthly copay for Eliquis is $37 Discharge Disposition: HOME WITH HOME HEALTH SERVICES
--- NOTE | 2020-09-04 11:15 | P.TEE ---
Indications for Procedure(s): TIA Date of Procedure: 09/03/20 Preoperative Diagnosis: Recurrent TIA Postoperative Diagnosis: No definite cardiac source of emboli Procedure(s) Performed: PERCY Description of Procedure(s): INDICATION: This is a 80-year-old female was admitted to the hospital with apparently recurrent episodes of TIA. A PERCY examination is requested. CONSENT: A verbal consent was obtained from the patient. Patient was explained the risks and benefits of the procedure PROCEDURE: . Patient was brought to the lab in a fasting state. The patient was prepped and draped in the usual fashion. The throat was sprayed with Hurricaine. 1 mg of Versed and 25 mics of fentanyl were given for sedation. A lubricated Omni probe was introduced into the oropharynx. Multiple views were obtained. The study was technically difficult with limited views. The valve is tricuspid and seemed to be functioning normally with mild regurgitation. The mitral valve is not well visualized but appears to be functioning normally with mild regurgitation. The interatrial septum appeared to be intact without any shunt. Saline contrast bubble injection did not reveal any crossing of the bubbles. Color, pulsed and continuous or double studies were done. The left atrial appendage is free of any clot. Aorta showed minimal plaque FINDINGS: #1. No PFO #2. No clot in left atrial appendage. #3. Valve function appeared to be normal . #4. Mild plaque in the aorta. #5. Overall, the study is suboptimal IMPRESSION: . No definite cardiac source of emboli PLAN: . Continue current medical therapy
--- NOTE | 2020-09-04 13:02 | P.PN ---
Subjective Progress Note Date: 09/04/20 She was seen at bedside and she said that she's doing well today and continues to do well compared to her initial presentation. That she has minimal dizziness with the position but she said that's much improved that. Denies any nausea or vomiting. The denies any new weakness or numbness. Objective - Vital Signs Vital signs: Vital Signs Temp 98.2 F 09/04/20 07:50 Pulse 70 09/04/20 08:00 Resp 19 09/04/20 08:00 BP 151/76 09/04/20 07:50 Pulse Ox 93 L 09/04/20 07:50 Intake & Output 09/03/20 09/04/20 09/04/20 18:59 06:59 18:59 Intake Total 455 Output Total 500 Balance 455 -500 Weight 83.6 kg Intake: IV 75 Oral 380 Output: Urine 500 Other: Voiding Method Toilet Toilet # Voids 2 1 1 # Bowel Movements 1 1 - Exam GENERAL: The patient is lying in bed and is not in acute distress. NEUROLOGICAL: Higher mental function: The patient is awake, alert, oriented to self, place and time. Patient is following commands. No aphasia and no neglect. Cranial nerves: The pupils are round, equal and reactive to light and accommodation. Visual johansen are full to confrontation throughout. Extraocular movement is intact and minimal nystagmus noted in looking to right or left and seem rotatory nystagmus. Facial sensation is normal to touch throughout. The facial strength is normal throughout. Hearing is mild hearing loss bilaterally to hand rub. Tongue is midline and moved [id number] without any difficulty. No dysarthria is noted. Shoulder shrug is normal bilaterally. Motor: The strength is 5 over 5 throughout. Normal tone and bulk. Cerebellum: Normal finger to nose bilaterally. Sensation: Sensation is normal to touch throughout. Reflexes (right/left): 2+ throughout. Plantars are downgoing bilaterally. - Labs CBC & Chem 7: 09/01/20 06:52 09/01/20 06:52 Assessment and Plan Assessment: Subacute stroke in multiple territroy (punctate focus on right parietal and left frontal). Seemed cardioembolic Dizziness and diplopia: Seems more benign positional vertigo--improving Proximal atrial fibrillation Elevated troponin Urinary tract infection Plan: MRI of the brain: Was reported as subacute infarct are small bilaterally noted. Correlate for embolic phenomena. Age-related changes of atrophy and chronic small vessel ischemia. Correlate for left maxillary sinus sinusitis. In the body it's mentioned that the patient had restricted diffusion towards the convex ity within the right parietal lobe, punctate focus as well as small foci in the left frontal lobe. I personally reviewed the MRI of the brain and I do agree that the on the DWI image the patient does have subacute changes noted the radiologist. 2D echo: Mild concentric left ventricular hypertrophy. Ejection fraction of 60- 65%. Left atrium is mildly dilated. Dobutamine stress echo was done on 09/02/2020 and it was negative. Carotid duplex: No hemodynamically significant stenosis bilaterally. Currently the patient is on Eliquis 5 mg twice a day because of her paroxysmal atrial fibrillation and she was started on it during this hospital stay (he was on aspirin 81 mg at home). Also the patient is on Lipitor 40 mg daily and this to be continued (patient stated that that she had that joint pain when that she was on the statins but she doesn't recall the dose or the name or the medication. As she is in agreement of starting Lipitor 40 mg and if she has any side effects we can either lower or change to a different medication). Lipid panel on 07/11/2020: Triglyceride 69, cholesterol is 226, LDL is 162, HDL is 50. There is no need to repeat the that lipid panel again. The goal of LDL for stroke is less than 70. TSH: Is 1.82. A1c is 5.8 on 07/11/2020. As no need to repeat the TSH ordered a hemoglobin A1c since the recent Transesophageal echocardiogram: repoted as No PFO. No clot in the left atrial appendage. Bowel function appears to be normal. Mild plaque in the aorta. No definite of source of emboli. Orhtostatic vitals are negative. Continue meclizine 12.5 mg 1 tab bid. Continue Zofran when necessary as needed. For elevated troponin, cardiology are on board. consultation. We'll defer the management of urinary tract infection to the primary team. Upon discharge the patient needs to follow-up with a neurologist as outpatient. The plan was discussed with the patient as well as with the primary team. Will Continue to follow. Johnson Brito M.D. Neuro-hospitalist Time with Patient: Less than 30
[2020-09-04 14:22] VITALS: RESP 18; TEMP 97.8
[2020-09-04 15:31] VITALS: BP 141/85; PULSE 55
== END 2020-09-04 15:58 | disposition home health service (06) | DRG 65 ==
LOC: EC 06:38 → 3SCARD 09:49 → OBSVTOIN 09-02 14:06
PROVIDERS: ADMIT Internal Medicine Geriatric Medicine; ATTEND Internal Medicine Geriatric Medicine
PROC: B246ZZ4 Ultrasonography of Right and Left Heart, Transesophageal (ICD-10-PCS; principal; 2020-09-04)
DX: I63.40 Cerebral infarction due to embolism of unspecified cerebral artery (principal); I31.3 Pericardial effusion (noninflammatory); E03.9 Hypothyroidism, unspecified; E78.5 Hyperlipidemia, unspecified; H53.2 Diplopia; H55.09 Other forms of nystagmus; H81.10 Benign paroxysmal vertigo, unspecified ear; H91.93 Unspecified hearing loss, bilateral; I48.0 Paroxysmal atrial fibrillation; I45.10 Unspecified right bundle-branch block; I11.0 Hypertensive heart disease with heart failure; I50.9 Heart failure, unspecified; J44.9 Chronic obstructive pulmonary disease, unspecified; J45.20 Mild intermittent asthma, uncomplicated; K21.9 Gastro-esophageal reflux disease without esophagitis; K44.9 Diaphragmatic hernia without obstruction or gangrene; M81.0 Age-related osteoporosis without current pathological fracture; Z91.81 History of falling; Z79.01 Long term (current) use of anticoagulants; Z79.1 Long term (current) use of non-steroidal anti-inflammatories (NSAID); Z79.82 Long term (current) use of aspirin; Z79.890 Hormone replacement therapy; Z79.899 Other long term (current) drug therapy; Z87.440 Personal history of urinary (tract) infections; Z87.891 Personal history of nicotine dependence; Z90.710 Acquired absence of both cervix and uterus; Z90.89 Acquired absence of other organs; I08.1 Rheumatic disorders of both mitral and tricuspid valves; I65.23 Occlusion and stenosis of bilateral carotid arteries
CPT/HCPCS: 36415; 70450; 70551; 71046; 80053; 81001; 84484; 85025; 87086; 93005; 93306; 93312; 93320; 93325; 93351; 93880; 94640; 96361; 96374; 96375; 99285

== ENCOUNTER → 2020-11-03 | Outpatient (CLI) | payer MEDICARE ==
--- NOTE | 2020-11-03 15:14 | US ---
EXAMINATION TYPE: US kidneys/renal and bladder DATE OF EXAM: 11/03/2020 COMPARISON: CT May 01, 2012 CLINICAL HISTORY: N39.0 Urinary tract infection, site not specified. EXAM MEASUREMENTS: Right Kidney: 11.0 x 2.8 x 4.8 cm Left Kidney: 8.7 x 4.6 x 4.9 cm Patient of large body habitus, technically difficult limited study. Right Kidney: No hydronephrosis or masses seen Left Kidney: echogenic area measuring 0.5 x 0.5 x 0.6cm , nonspecific, possible nonobstructing small calculus. Bladder: wnl, as seen, not fully distended, patient feels full There is no evidence for hydronephrosis at this point in time. No nephrolithiasis is seen. No libia s are identified. The urinary bladder is not greatly distended. Bilateral ureteral jets are not see n. IMPRESSION: Suboptimal study but no hydronephrosis is seen bilaterally.
== END | disposition home or self-care (01) ==
LOC: RADUSWWP 14:28
PROVIDERS: ATTEND Urology
DX: N39.0 Urinary tract infection, site not specified (principal)
CPT/HCPCS: 76770